=== PATIENT | male | born 1965 | race Caucasian/White ===

== ENCOUNTER 2018-09-01 13:54 | Emergency (ER) | payer BC ==
[2018-09-01 14:01] VITALS: TEMP 98.1
[2018-09-01] MEDS ORDERED: SODIUM CHLORIDE 0.9% 500 ML 500 ML IV STA (14:33)
--- NOTE | 2018-09-01 14:45 | ED ---
General Adult HPI - General Chief complaint: Chest Pain Stated complaint: Chest pain Time Seen by Provider: 09/01/18 14:00 Source: patient, RN notes reviewed Mode of arrival: ambulatory Limitations: no limitations - History of Present Illness Initial comments: This is a 52-year-old male complaining of palpitations. Patient states it's been ongoing for the last few days. Patient states nothing seems to bring it on or slowed down. Patient states it only lasts a few minutes. Patient states there is no chest pain associated with it however he does feel a bit short of breath when it occurs. Patient denies any increased caffeine intake. Patient denies any drug use. Patient denies any recent fever or chills. Patient denies any headache patient denies numbness weakness per patient denies lightheadedness dizziness or near-syncopal episode. Patient denies any recent trip or travel. Patient denies any calf pain or leg swelling. - Related Data Home Medications Medication Instructions Recorded Confirmed Cetirizine HCl [Zyrtec] 10 mg PO DAILY 10/05/16 10/05/16 Fluticasone Propionate [Flonase] 1 spray EA NOSTRIL DAILY PRN 10/05/16 10/05/16 Magnesium Gluconate [Magonate] 500 mg PO DAILY 10/05/16 10/05/16 Multivitamins, Thera [Multivitamin] 1 tab PO DAILY 10/05/16 10/05/16 Previous Rx's Medication Instructions Recorded Ibuprofen [Motrin] 800 mg PO Q6HR PRN #30 tab 10/05/16 Allergies Allergy/AdvReac Type Severity Reaction Status Date / Time promethazine HCl Allergy MAKES Verified 09/01/18 14:01 [From Phenergan] PATIENT "JITTERY" Review of Systems ROS Statement: Those systems with pertinent positive or pertinent negative responses have been documented in the HPI. ROS Other: All systems not noted in ROS Statement are negative. Past Medical History Past Medical History: No Reported History History of Any Multi-Drug Resistant Organisms: None Reported Past Surgical History: No Surgical Hx Reported Past Psychological History: No Psychological Hx Reported Smoking Status: Never smoker Past Alcohol Use History: None Reported Past Drug Use History: None Reported General Exam - General Exam Comments Initial Comments: GENERAL: Patient is well-developed and well-nourished. Patient is nontoxic and well- hydrated and is in no acute distress. ENT: Neck is soft and supple. No significant lymphadenopathy is noted. Oropharynx is clear. Moist mucous membranes. Neck has full range of motion without eliciting any pain. EYES: The sclera were anicteric and conjunctiva were pink and moist. Extraocular movements were intact and pupils were equal round and reactive to light. Eyelids were unremarkable. PULMONARY: Unlabored respirations. Good breath sounds bilaterally. No audible rales rhonchi or wheezing was noted. CARDIOVASCULAR: There is a regular rate and rhythm without any murmurs gallops or rubs. Occasional extrasystole ABDOMEN: Soft and nontender with normal bowel sounds. No palpable organomegaly was noted. There is no palpable pulsatile mass. SKIN: Skin is clear with no lesions or rashes and otherwise unremarkable. NEUROLOGIC: Patient is alert and oriented x3. Cranial nerves II through XII are grossly intact. Motor and sensory are also intact. Normal speech, volume and content. Symmetrical smile. MUSCULOSKELETAL: Normal extremities with adequate strength and full range of motion. No lower extremity swelling or edema. No calf tenderness. LYMPHATICS: No significant lymphadenopathy is noted PSYCHIATRIC: Normal psychiatric evaluation. Limitations: no limitations Course Vital Signs 09/01/18 13:58 Temperature 98.1 F Pulse Rate 63 Respiratory 18 Rate Blood Pressure 129/83 O2 Sat by Pulse 99 Oximetry Medical Decision Making - Medical Decision Making EKG shows normal sinus rhythm at 61 bpm UT interval is 202 QRS is 102 QT interval 36 QTC is 388. Patient's EKG shows no ST segment elevation or depression or T wave abnormalities are noted. Though the nurse's notes stated chest pain when I spoke with the patient I asked him specifically the chest pain he denied that he stated he only had fluttering in his chest. Chest x-ray showed no acute abnormality. Patient did not have any more expensive palpitations while in the emergency department and I again reiterated to him that if he would have any chest pain he should return and he agreed. He states he has yet to have any chest pain. - Lab Data Result diagrams: 09/01/18 14:15 09/01/18 14:15 Lab Results 09/01/18 09/01/18 09/01/18 Range/Units 14:15 14:15 14:15 WBC 4.3 (3.8-10.6) k/uL RBC 4.95 (4.30-5.90) m/uL Hgb 14.9 (13.0-17.5) gm/dL Hct 45.2 (39.0-53.0) % MCV 91.3 (80.0-100.0) fL MCH 30.2 (25.0-35.0) pg MCHC 33.1 (31.0-37.0) g/dL RDW 13.0 (11.5-15.5) % Plt Count 229 (150-450) k/uL Neutrophils % 64 % Lymphocytes % 18 % Monocytes % 8 % Eosinophils % 7 % Basophils % 1 % Neutrophils # 2.7 (1.3-7.7) k/uL Lymphocytes # 0.8 L (1.0-4.8) k/uL Monocytes # 0.3 (0-1.0) k/uL Eosinophils # 0.3 (0-0.7) k/uL Basophils # 0.0 (0-0.2) k/uL PT (9.0-12.0) sec INR (<1.2) APTT (22.0-30.0) sec D-Dimer (<0.60) mg/L FEU Sodium 139 (137-145) mmol/L Potassium 4.6 (3.5-5.1) mmol/L Chloride 105 (98-107) mmol/L Carbon Dioxide 25 (22-30) mmol/L Anion Gap 9 mmol/L BUN 30 H (9-20) mg/dL Creatinine 1.03 (0.66-1.25) mg/dL Est GFR (CKD-EPI)AfAm >90 (>60 ml/min/1.73 sqM) Est GFR (CKD-EPI)NonAf 83 (>60 ml/min/1.73 sqM) Glucose 96 (74-99) mg/dL Calcium 9.5 (8.4-10.2) mg/dL Magnesium 1.9 (1.6-2.3) mg/dL Total Bilirubin 0.5 (0.2-1.3) mg/dL AST 40 (17-59) U/L ALT 46 (21-72) U/L Alkaline Phosphatase 52 (38-126) U/L Total Creatine Kinase 107 (55-170) U/L CK-MB (CK-2) 3.0 H (0.0-2.4) ng/mL CK-MB (CK-2) Rel Index 2.8 Troponin I <0.012 (0.000-0.034) ng/mL Total Protein 7.0 (6.3-8.2) g/dL Albumin 4.2 (3.5-5.0) g/dL TSH 7.200 H (0.465-4.680) mIU/L Free T4 0.67 L (0.78-2.19) ng/dL Urine Opiates Screen (NotDetected) Ur Oxycodone Screen (NotDetected) Urine Methadone Screen (NotDetected) Ur Propoxyphene Screen (NotDetected) Ur Barbiturates Screen (NotDetected) U Tricyclic Antidepress (NotDetected) Ur Phencyclidine Scrn (NotDetected) Ur Amphetamines Screen (NotDetected) U Methamphetamines Scrn (NotDetected) U Benzodiazepines Scrn (NotDetected) Urine Cocaine Screen (NotDetected) U Marijuana (THC) Screen (NotDetected) 09/01/18 09/01/18 Range/Units 14:15 15:15 WBC (3.8-10.6) k/uL RBC (4.30-5.90) m/uL Hgb (13.0-17.5) gm/dL Hct (39.0-53.0) % MCV (80.0-100.0) fL MCH (25.0-35.0) pg MCHC (31.0-37.0) g/dL RDW (11.5-15.5) % Plt Count (150-450) k/uL Neutrophils % % Lymphocytes % % Monocytes % % Eosinophils % % Basophils % % Neutrophils # (1.3-7.7) k/uL Lymphocytes # (1.0-4.8) k/uL Monocytes # (0-1.0) k/uL Eosinophils # (0-0.7) k/uL Basophils # (0-0.2) k/uL PT 10.5 (9.0-12.0) sec INR 1.1 (<1.2) APTT 27.6 (22.0-30.0) sec D-Dimer <0.17 (<0.60) mg/L FEU Sodium (137-145) mmol/L Potassium (3.5-5.1) mmol/L Chloride (98-107) mmol/L Carbon Dioxide (22-30) mmol/L Anion Gap mmol/L BUN (9-20) mg/dL Creatinine (0.66-1.25) mg/dL Est GFR (CKD-EPI)AfAm (>60 ml/min/1.73 sqM) Est GFR (CKD-EPI)NonAf (>60 ml/min/1.73 sqM) Glucose (74-99) mg/dL Calcium (8.4-10.2) mg/dL Magnesium (1.6-2.3) mg/dL Total Bilirubin (0.2-1.3) mg/dL AST (17-59) U/L ALT (21-72) U/L Alkaline Phosphatase (38-126) U/L Total Creatine Kinase (55-170) U/L CK-MB (CK-2) (0.0-2.4) ng/mL CK-MB (CK-2) Rel Index Troponin I (0.000-0.034) ng/mL Total Protein (6.3-8.2) g/dL Albumin (3.5-5.0) g/dL TSH (0.465-4.680) mIU/L Free T4 (0.78-2.19) ng/dL Urine Opiates Screen Not Detected (NotDetected) Ur Oxycodone Screen Not Detected (NotDetected) Urine Methadone Screen Not Detected (NotDetected) Ur Propoxyphene Screen Not Detected (NotDetected) Ur Barbiturates Screen Not Detected (NotDetected) U Tricyclic Antidepress Not Detected (NotDetected) Ur Phencyclidine Scrn Not Detected (NotDetected) Ur Amphetamines Screen Not Detected (NotDetected) U Methamphetamines Scrn Not Detected (NotDetected) U Benzodiazepines Scrn Not Detected (NotDetected) Urine Cocaine Screen Not Detected (NotDetected) U Marijuana (THC) Screen Not Detected (NotDetected) Disposition Clinical Impression: Palpitations, Hypothyroid Disposition: HOME SELF-CARE Condition: Good Instructions: Heart Palpitations (ED), Hypothyroidism (ED) Is patient prescribed a controlled substance at d/c from ED?: No Referrals: Bucky Guardado DO [Primary Care Provider] - 1-2 days Time of Disposition: 16:01
[2018-09-01 14:55] LABS: Basophils % (A) 1 %; Eosinophils # (A) 0.3 k/uL (0-0.7); Eosinophils % (A) 7 %; HCT 45.2 % (39.0-53.0); HGB 14.9 gm/dL (13.0-17.5); Lymphocytes # (A) 0.8 k/uL (1.0-4.8); Lymphocytes % (A) 18 %; MCH 30.2 pg (25.0-35.0); MCHC 33.1 g/dL (31.0-37.0); MCV 91.3 fL (80.0-100.0); Mean Platelet Volume 7.4; Monocytes # (A) 0.3 k/uL (0-1.0); Monocytes % (A) 8 %; Neutrophils # (A) 2.7 k/uL (1.3-7.7); Neutrophils % (A) 64 %; Platelet Count 229 k/uL (150-450); RBC 4.95 m/uL (4.30-5.90); WBC 4.3 k/uL (3.8-10.6)
[2018-09-01 15:07] LABS: ALT 46 U/L (21-72); AST 40 U/L (17-59); Albumin 4.2 g/dL (3.5-5.0); Alkaline Phosphatase 52 U/L (38-126); Anion Gap 9 mmol/L; Blood Urea Nitrogen 30 mg/dL (9-20); Calcium 9.5 mg/dL (8.4-10.2); Carbon Dioxide 25 mmol/L (22-30); Chloride 105 mmol/L (98-107); Glucose 96 mg/dL (74-99); Magnesium 1.9 mg/dL (1.6-2.3); Potassium 4.6 mmol/L (3.5-5.1); Sodium 139 mmol/L (137-145); Total Bilirubin 0.5 mg/dL (0.2-1.3)
[2018-09-01 15:12] LABS: D-Dimer <0.17 mg/L FEU (<0.60); INR 1.1 (<1.2); Partial Thromboplastin Time 27.6 sec (22.0-30.0); Prothrombin Time 10.5 sec (9.0-12.0)
[2018-09-01 15:23] LABS: T4, Free (Free Thyroxine) 0.67 ng/dL (0.78-2.19)
[2018-09-01 15:24] LABS: Creatine Kinase 107 U/L (55-170)
[2018-09-01 15:37] LABS: Troponin I <0.012 ng/mL (0.000-0.034)
--- NOTE | 2018-09-01 15:37 | XR ---
EXAMINATION TYPE: XR chest 2V DATE OF EXAM: 09/01/2018 COMPARISON: Prior chest x-ray 10/05/2016 HISTORY: Dysrhythmia TECHNIQUE: Frontal and lateral views of the chest are obtained on 3 images. FINDINGS: There is no focal air space opacity, pleural effusion, or pneumothorax seen. The cardiac silhouette size is within normal limits. The osseous structures are intact. There are overlying car diac leads. IMPRESSION: No acute cardiopulmonary process.
[2018-09-01 15:44] LABS: Amphetamine Screen,Urine Not Detected (NotDetected); Barbiturate Screen,Urine Not Detected (NotDetected); Benzodiazepines Screen,Urine Not Detected (NotDetected); Cocaine Screen,Urine Not Detected (NotDetected); Methadone Screen, Urine Not Detected (NotDetected); Opiate Screen,Urine Not Detected (NotDetected); Oxycodone Screen, Urine Not Detected (NotDetected); Phencyclidine Screen,Urine Not Detected (NotDetected); Tricyclic Antidepressant,Urine Not Detected (NotDetected); Urn Cannabinoid Scrn Not Detected (NotDetected)
[2018-09-01 16:14] VITALS: BP 124/91; PULSE 67; RESP 16
== END 2018-09-01 16:15 | disposition home or self-care (01) ==
LOC: EC 13:54
DX: E03.9 Hypothyroidism, unspecified (principal); R00.2 Palpitations; R06.02 Shortness of breath; Z88.8 Allergy status to other drugs, medicaments and biological substances; Z79.899 Other long term (current) drug therapy
CPT/HCPCS: 36415; 71046; 80053; 80306; 82550; 82553; 83735; 84439; 84443; 84484; 85025; 85379; 85610; 85730; 93005; 99285

== ENCOUNTER → 2018-09-10 | Outpatient (CLI) | payer BC ==
--- NOTE | 2018-09-10 11:57 | US ---
EXAMINATION TYPE: US thyroid st tissue head/neck DATE OF EXAM: 09/10/2018 COMPARISON: NONE CLINICAL HISTORY: Abnormal thyroid labs. abnormal labs, no previous US GLAND SIZE: Right Lobe: 3.1 x 2.0 x 1.3 cm Overall Parenchyma: heterogenous Left Lobe: 4.5 x 2.3 x 2.2 cm Overall Parenchyma: heterogeneous Isthmus Thickness: 0.5 cm NODULES RIGHT: # of nodules measured on right: 0 LEFT: # of nodules measured on left: 1 1. 0.8 X 0.7 x 0.6 cm hypoechoic solid nodule at the mid pole with well-defined margins. This nodu le is wider than tall and shows intranodular vascularity. Prior size: No previous ISTHMUS: # of nodules measured in the isthmus: 0 Bilateral neck scanned, no evidence of lymphadenopathy. IMPRESSION: The gland is diffusely heterogeneous, correlate for thyroiditis.
== END | disposition home or self-care (01) ==
LOC: RADUSWWP 11:01
PROVIDERS: ATTEND Family Medicine
DX: R94.6 Abnormal results of thyroid function studies (principal)
CPT/HCPCS: 76536

== ENCOUNTER → 2018-09-13 | Outpatient (CLI) | payer BC ==
--- NOTE | 2018-09-14 10:02 | ECHOF ---
Referral Reason:R07.89 Chest Pain, I49.9 Arrhythmia MEASUREMENTS -------- HEIGHT: 193.0 cm WEIGHT: 106.6 kg BP: 120/78 RVIDd: 3.7 cm (< 3.3) IVSd: 1.4 cm (0.6 - 1.1) LVIDd: 4.5 cm (3.9 - 5.3) LVPWd: 1.4 cm (0.6 - 1.1) IVSs: 1.6 cm LVIDs: 4.0 cm LVPWs: 1.5 cm LA Diam: 3.5 cm (2.7 - 3.8) LAESV Index (A-L): 27.42 ml/m Ao Diam: 3.5 cm (2.0 - 3.7) AV Cusp: 2.7 cm (1.5 - 2.6) MV EXCURSION: 21.518 mm (> 18.000) MV EF SLOPE: 132 mm/s (70 - 150) EPSS: 0.4 cm MV E Kannan: 0.63 m/s MV DecT: 218 ms MV A Kannan: 0.66 m/s MV E/A Ratio: 0.95 RAP: 5.00 mmHg RVSP: 22.12 mmHg FINDINGS -------- Sinus rhythm. This was a technically good study. The left ventricular size is normal. There is moderate concentric left ventricular hypertrophy. O verall left ventricular systolic function is normal with, an EF between 60 - 65 %. The right ventricle is mildly enlarged. Normal LA size by volume 22+/-6 ml/m2. The right atrium is normal in size. The aortic valve is trileaflet and appears structurally normal. The mitral valve is normal. Mild tricuspid regurgitation present. Right ventricular systolic pressure is normal at < 35 mmHg. Trace/mild (physiologic) pulmonic regurgitation. The aortic root size is normal. Normal inferior vena cava with normal inspiratory collapse consistent with estimated right atrial pre ssure of 5 mmHg. There is no pericardial effusion. CONCLUSIONS -------- 1. Sinus rhythm. 2. This was a technically good study. 3. The left ventricular size is normal. 4. There is moderate concentric left ventricular hypertrophy. 5. Overall left ventricular systolic function is normal with, an EF between 60 - 65 %. 6. The right ventricle is mildly enlarged. 7. Normal LA size by volume 22+/-6 ml/m2. 8. The right atrium is normal in size. 9. The aortic valve is trileaflet and appears structurally normal. 10. The mitral valve is normal. 11. Mild tricuspid regurgitation present. 12. Right ventricular systolic pressure is normal at < 35 mmHg. 13. Trace/mild (physiologic) pulmonic regurgitation. 14. The aortic root size is normal. 15. Normal inferior vena cava with normal inspiratory collapse consistent with estimated right atrial pressure of 5 mmHg. 16. There is no pericardial effusion. TRAFFIC TECHNICIAN: Hetal Ashby RDCS
== END ==
LOC: RADECHMAIN 13:00
PROVIDERS: ATTEND Family Medicine
DX: I37.1 Nonrheumatic pulmonary valve insufficiency (principal); I07.1 Rheumatic tricuspid insufficiency
CPT/HCPCS: 93306

== ENCOUNTER 2021-08-08 19:05 | Observation (INO) | payer BC ==
--- NOTE | 2021-08-08 19:22 | ED ---
General Adult HPI - General Chief complaint: Chest Pain Stated complaint: chest tightness Time Seen by Provider: 08/08/21 19:09 Source: patient, family Limitations: no limitations - History of Present Illness Initial comments: Patient presents to the ED with his for evaluation. Patient states that for the past 6 days, he has experienced intermittent chest "pressure" and d yspnea. Patient states that he initially noticed these symptoms after climbing a ladder earlier in the week. Patient states that his dyspnea is worse with exertion, but he states that his chest pressure is present even at rest at times. Patient states that he currently has very mild chest pressure that he rates 3/10 in severity. Patient states that he took 4 baby aspirin prior to coming to the ED this evening. Patient denies radiation of his pain, trauma or injury, fever or chills, headache, focal numbness/weakness/neuro deficit, neck/arm/jaw/back pain, pleuritic pain, cough or cold symptoms, palpitations, dizziness, nausea/vomiting/diaphoresis, abdominal pain, urinary symptoms, leg or calf swelling or pain, or any other symptoms or complaints. Patient states that he does have a strong family history of coronary artery disease. - Related Data Home Medications Medication Instructions Recorded Confirmed Cetirizine HCl [Zyrtec] 10 mg PO DAILY 10/05/16 10/05/16 Fluticasone Propionate [Flonase] 1 spray EA NOSTRIL DAILY PRN 10/05/16 10/05/16 Magnesium Gluconate [Magonate] 500 mg PO DAILY 10/05/16 10/05/16 Multivitamins, Thera [Multivitamin] 1 tab PO DAILY 10/05/16 10/05/16 Previous Rx's Medication Instructions Recorded Ibuprofen [Motrin] 800 mg PO Q6HR PRN #30 tab 10/05/16 Allergies Allergy/AdvReac Type Severity Reaction Status Date / Time promethazine HCl Allergy MAKES Verified 08/08/21 19:23 [From Phenergan] PATIENT "JITTERY" Review of Systems ROS Statement: Those systems with pertinent positive or pertinent negative responses have been documented in the HPI. ROS Other: All systems not noted in ROS Statement are negative. Past Medical History Past Medical History: No Reported History Additional Past Medical History / Comment(s): Hypothyroidism History of Any Multi-Drug Resistant Organisms: None Reported Past Surgical History: No Surgical Hx Reported Past Psychological History: No Psychological Hx Reported Past Alcohol Use History: None Reported Past Drug Use History: None Reported - Past Family History Father Family Medical History: Coronary Artery Disease (CAD) General Exam Limitations: no limitations General appearance: alert, in no apparent distress Head exam: Present: atraumatic, normocephalic Eye exam: Present: normal appearance, EOMI ENT exam: Present: mucous membranes moist Neck exam: Present: other (Trachea is in midline) Respiratory exam: Present: normal lung sounds bilaterally. Absent: respiratory distress, wheezes, rales, rhonchi, stridor, chest wall tenderness Cardiovascular Exam: Present: regular rate, normal rhythm, normal heart sounds, other (Normal radial pulses bilaterally) GI/Abdominal exam: Present: soft. Absent: distended, tenderness, guarding Extremities exam: Present: other (Negative Homans sign bilaterally). Absent: t enderness, pedal edema, calf tenderness Neurological exam: Present: alert, oriented X3. Absent: motor sensory deficit Psychiatric exam: Present: normal affect, normal mood Skin exam: Present: warm, dry, intact, normal color Course Vital Signs 08/08/21 08/08/21 08/08/21 19:18 19:19 19:30 Temperature 97.9 F Pulse Rate 71 74 Respiratory 18 18 Rate Blood Pressure 133/97 133/97 O2 Sat by Pulse 96 98 97 Oximetry 08/08/21 20:00 Temperature Pulse Rate 57 L Respiratory 18 Rate Blood Pressure 132/95 O2 Sat by Pulse 95 Oximetry - Reevaluation(s) Reevaluation #1: 08/08/21 21:02 Patient denies development of any new symptoms while in the ED. Patient remains alert and breathing comfortably with a normal room air oxygen saturation. Patient and are aware the patient's test results, and they both agree with hospital admission at this time. 08/08/21 21:03 Case, H&P, test results and ED/home management were discussed with Dr. Steele. He accepts hospital admission. He agrees with cardiology consultation. He has no further recommendations at this time. EKG Findings - EKG Comments: EKG Findings:: Sinus rhythm with borderline first-degree AV block, occasional PVCs, ventricular rate of 75 bpm, WI interval of 206 ms, normal QRS duration, normal QT interval, normal axis, no ST or T-wave abnormality Medical Decision Making - Medical Decision Making Patient's EKG shows occasional PVCs, which the patient states he has a history of. Patient's chest x-ray is unremarkable. Patient's troponin and d-dimer are both negative. Patient's labs are fairly unremarkable. Given the patient's strong family history of coronary artery disease, and given his story, will admit the patient to the hospital for serial troponins, cardiac monitoring and cardiology consultation. Dr. Steele has accepted hospital admission. - Lab Data Result diagrams: 08/08/21 19:52 08/08/21 19:52 Lab Results 08/08/21 08/08/21 08/08/21 Range/Units 19:52 19:52 19:52 WBC 6.4 (3.8-10.6) k/uL RBC 4.60 (4.30-5.90) m/uL Hgb 14.3 (13.0-17.5) gm/dL Hct 42.2 (39.0-53.0) % MCV 91.6 (80.0-100.0) fL MCH 31.2 (25.0-35.0) pg MCHC 34.0 (31.0-37.0) g/dL RDW 12.1 (11.5-15.5) % Plt Count 178 (150-450) k/uL MPV 8.7 Neutrophils % 79 % Lymphocytes % 13 % Monocytes % 6 % Eosinophils % 0 % Basophils % 1 % Neutrophils # 5.1 (1.3-7.7) k/uL Lymphocytes # 0.8 L (1.0-4.8) k/uL Monocytes # 0.4 (0-1.0) k/uL Eosinophils # 0.0 (0-0.7) k/uL Basophils # 0.0 (0-0.2) k/uL PT 10.4 (9.0-12.0) sec INR 1.0 (<1.2) APTT 24.8 (22.0-30.0) sec D-Dimer <0.17 (<0.60) mg/L FEU Sodium 140 (137-145) mmol/L Potassium 4.2 (3.5-5.1) mmol/L Chloride 108 H (98-107) mmol/L Carbon Dioxide 22 (22-30) mmol/L Anion Gap 10 mmol/L BUN 23 H (9-20) mg/dL Creatinine 1.11 (0.66-1.25) mg/dL Est GFR (CKD-EPI)AfAm 86 (>60 ml/min/1.73 sqM) Est GFR (CKD-EPI)NonAf 74 (>60 ml/min/1.73 sqM) Glucose 116 H (74-99) mg/dL Calcium 10.0 (8.4-10.2) mg/dL Magnesium 2.0 (1.6-2.3) mg/dL Total Bilirubin 0.4 (0.2-1.3) mg/dL AST 32 (17-59) U/L ALT 35 (4-49) U/L Alkaline Phosphatase 50 (38-126) U/L Troponin I (0.000-0.034) ng/mL Total Protein 7.4 (6.3-8.2) g/dL Albumin 4.6 (3.5-5.0) g/dL 08/08/21 Range/Units 19:52 WBC (3.8-10.6) k/uL RBC (4.30-5.90) m/uL Hgb (13.0-17.5) gm/dL Hct (39.0-53.0) % MCV (80.0-100.0) fL MCH (25.0-35.0) pg MCHC (31.0-37.0) g/dL RDW (11.5-15.5) % Plt Count (150-450) k/uL MPV Neutrophils % % Lymphocytes % % Monocytes % % Eosinophils % % Basophils % % Neutrophils # (1.3-7.7) k/uL Lymphocytes # (1.0-4.8) k/uL Monocytes # (0-1.0) k/uL Eosinophils # (0-0.7) k/uL Basophils # (0-0.2) k/uL PT (9.0-12.0) sec INR (<1.2) APTT (22.0-30.0) sec D-Dimer (<0.60) mg/L FEU Sodium (137-145) mmol/L Potassium (3.5-5.1) mmol/L Chloride (98-107) mmol/L Carbon Dioxide (22-30) mmol/L Anion Gap mmol/L BUN (9-20) mg/dL Creatinine (0.66-1.25) mg/dL Est GFR (CKD-EPI)AfAm (>60 ml/min/1.73 sqM) Est GFR (CKD-EPI)NonAf (>60 ml/min/1.73 sqM) Glucose (74-99) mg/dL Calcium (8.4-10.2) mg/dL Magnesium (1.6-2.3) mg/dL Total Bilirubin (0.2-1.3) mg/dL AST (17-59) U/L ALT (4-49) U/L Alkaline Phosphatase (38-126) U/L Troponin I <0.012 (0.000-0.034) ng/mL Total Protein (6.3-8.2) g/dL Albumin (3.5-5.0) g/dL - Radiology Data Radiology results: report reviewed (Chest x-ray: Normal chest. No change.) Disposition Clinical Impression: Chest pain Disposition: ADMITTED IP TO THIS [facility] Condition: Stable Is patient prescribed a controlled substance at d/c from ED?: No Referrals: Bucky Guardado DO [Primary Care Provider] - 1-2 days
[2021-08-08 19:24] VITALS: TEMP 97.9
[2021-08-08] MEDS ORDERED: NITROGLYCERIN OINT 1 INCH/GM PACKET TOPICAL STA (19:32)
--- NOTE | 2021-08-08 19:51 | XR ---
EXAMINATION TYPE: XR chest 2V DATE OF EXAM: 08/08/2021 COMPARISON: 09/01/2018 HISTORY: Dysrhythmia TECHNIQUE: FINDINGS: Heart and mediastinum are normal. Lungs are clear. Diaphragm is normal. Bony thorax appears normal. IMPRESSION: Normal chest. No change.
[2021-08-08 20:04] LABS: Basophils % (A) 1 %; Eosinophils % (A) 0 %; HCT 42.2 % (39.0-53.0); HGB 14.3 gm/dL (13.0-17.5); Lymphocytes # (A) 0.8 k/uL (1.0-4.8); Lymphocytes % (A) 13 %; MCH 31.2 pg (25.0-35.0); MCV 91.6 fL (80.0-100.0); Mean Platelet Volume 8.7; Monocytes # (A) 0.4 k/uL (0-1.0); Monocytes % (A) 6 %; Neutrophils # (A) 5.1 k/uL (1.3-7.7); Neutrophils % (A) 79 %; Platelet Count 178 k/uL (150-450); RDW 12.1 % (11.5-15.5); WBC 6.4 k/uL (3.8-10.6)
[2021-08-08 20:23] LABS: Albumin 4.6 g/dL (3.5-5.0); Potassium 4.2 mmol/L (3.5-5.1); Total Bilirubin 0.4 mg/dL (0.2-1.3); Total Protein 7.4 g/dL (6.3-8.2)
[2021-08-08 20:28] LABS: Partial Thromboplastin Time 24.8 sec (22.0-30.0); Prothrombin Time 10.4 sec (9.0-12.0)
[2021-08-09] MEDS: ACETAMINOPHEN TAB 325 MG TAB PO PRN ×2 (01:19→08:16)
[2021-08-09 04:02] LABS: Basophils % (A) 0 %; Eosinophils # (A) 0.1 k/uL (0-0.7); Eosinophils % (A) 1 %; HCT 39.4 % (39.0-53.0); HGB 13.3 gm/dL (13.0-17.5); Lymphocytes # (A) 1.3 k/uL (1.0-4.8); Lymphocytes % (A) 23 %; MCH 31.5 pg (25.0-35.0); MCHC 33.8 g/dL (31.0-37.0); MCV 93.1 fL (80.0-100.0); Mean Platelet Volume 8.1; Monocytes # (A) 0.5 k/uL (0-1.0); Monocytes % (A) 9 %; Neutrophils # (A) 3.7 k/uL (1.3-7.7); Neutrophils % (A) 65 %; Platelet Count 143 k/uL (150-450); RBC 4.23 m/uL (4.30-5.90); RDW 12.2 % (11.5-15.5); WBC 5.8 k/uL (3.8-10.6)
[2021-08-09 04:26] LABS: ALT 31 U/L (4-49); AST 27 U/L (17-59); African American GFR (CKD) >90 (>60 ml/min/1.73 sqM); Albumin 3.9 g/dL (3.5-5.0); Alkaline Phosphatase 44 U/L (38-126); Anion Gap 6 mmol/L; Blood Urea Nitrogen 24 mg/dL (9-20); Calcium 9.4 mg/dL (8.4-10.2); Carbon Dioxide 26 mmol/L (22-30); Chloride 106 mmol/L (98-107); Glucose 114 mg/dL (74-99); Non-African American GFR(CKD) 78 (>60 ml/min/1.73 sqM); Potassium 4.1 mmol/L (3.5-5.1); Sodium 138 mmol/L (137-145); Total Bilirubin 0.4 mg/dL (0.2-1.3); Total Protein 6.4 g/dL (6.3-8.2)
--- NOTE | 2021-08-09 09:40 | P.CRDCN ---
History of Present Illness History of present illness: HISTORY OF PRESENTING ILLNESS This is a pleasant 55-year-old male past medical history significant for hypothyroidism. 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 We have been asked to see in consultation for chest pain. Patient is seen and examined in the emergency department. He states he has been having chest pain since Monday. Pain has been having central and left sided chest pain on and off for a week. He describes his pain as a chest pressure. He does have radiating to his upper joelle k. He states he was working out in his yard doing housework, climbing up ladders and after this pain with it started having the chest pressure. He was not having any chest pressure during his activity. He had associated shortness of breath, mild diaphoresis. He also endorses occasional palpitations. He denies any nausea or abdominal pain, lightheadedness, dizziness, syncope. He denies symptoms of orthopnea or PND. He denies history of PR, stroke, diabetes, hypertension, dyslipidemia. He has no history of coronary artery disease. He is a nonsmoker. Family history includes father had hypertension. He denies any recent stress testing or cardiac workup. DIAGNOSTICS EKG reveals sinus rhythm, PVCs, heart rate 75, T wave inversion in lead III, T wave flattening in lead aVF. EKG in 2018 appear similar. Echocardiogram in 2018 revealed an EF of 6065 percent, moderate concentric left ventricular hypertrophy, mild tricuspid regurgitation. Chest xray no acute cardiopulmonary process. Laboratory reviewed, sodium 138, potassium 4.1, BUN 24, serum creatinine 1.07, troponin negative 3, BNP 119, d-dimer negative, COVID-19 PCR negative He states he currently takes acid reflux medication, Synthroid, vitamins. REVIEW OF SYSTEMS At the time of my exam: CONSTITUTIONAL: Denies fever or chills. CARDIOVASCULAR: + chest pain, +shortness of breath, +palpitations Denies orthopnea, PND RESPIRATORY: Denies cough. GASTROINTESTINAL: Denies abdominal pain, diarrhea, constipation, nausea or v omiting. MUSCULOSKELETAL: Denies myalgias. NEUROLOGIC: Denies numbness, tingling, headacbe or weakness. ENDOCRINE: Denies fatigue, weight change, polydipsia or polyurina. GENITOURINARY: Denies burning, hematuria or urgency with micturation. HEMATOLOGIC: Denies history of anemia or bleeding. PHYSICAL EXAMINATION Blood pressure 144/92, heart rate 80, afebrile, maintaining oxygen saturations on room air CONSTITUTIONAL: No apparent distress. HEENT: Head is normocephalic. Pupils are equal, round. Sclerae anicteric. Mucous membranes of the mouth are moist. No JVD. No carotid bruit. CHEST EXAMINATION: Lungs are clear to auscultation. No chest wall tenderness is noted on palpation or with deep breathing. HEART EXAMINATION: Regular rate and rhythm. S1, S2 heard. No murmurs, gallops or rub. ABDOMEN: Soft, nontender. Positive bowel sounds. EXTREMITIES: 2+ peripheral pulses, no lower extremity edema and no calf tenderness. NEUROLOGIC EXAMINATION: Patient is awake, alert and oriented x3. ASSESSMENT Chest pain, atypical, acute coronary syndrome has been ruled out. History of hypothyroidism PLAN: An acute coronary event has been ruled out with no EKG evidence of ischemia and negative cardiac enzymes. Perform stress echo test to assess for stress induced cardiac ischemia. If abnormal will consider coronary angiography. From a cardiology perspective, if Stress Echo test is normal, no further cardiac workup indicated. Patient stable to be discharged home. Thank you kindly for this consultation. Nurse Practitioner note has been reviewed, I agree with a documented findings and plan of care. Patient was seen and examined. Past Medical History Past Medical History: No Reported History Additional Past Medical History / Comment(s): Hypothyroidism History of Any Multi-Drug Resistant Organisms: None Reported Past Surgical History: No Surgical Hx Reported Additional Past Surgical History / Comment(s): Eye surgery. Past Psychological History: No Psychological Hx Reported Past Alcohol Use History: None Reported Past Drug Use History: None Reported - Past Family History Father Family Medical History: Coronary Artery Disease (CAD) Medications and Allergies Home Medications Medication Instructions Recorded Confirmed Type Fluticasone Propionate [Flonase] 1 spray EA NOSTRIL DAILY PRN 10/05/16 08/08/21 History Multivitamins, Thera [Multivitamin] 1 tab PO DAILY 10/05/16 08/08/21 History Aspirin EC [Ecotrin Low Dose] 81 mg PO DAILY 08/08/21 08/08/21 History Calcium/Magnesium/Zinc 1 tab PO DAILY 08/08/21 08/08/21 History [Wchmpqy-Ecezksypk-Ubyn Tablet] Cholecalciferol [Vitamin D3 (25 25 mcg PO DAILY 08/08/21 08/08/21 History Mcg = 1000 Iu)] Lansoprazole [Prevacid] 15 mg PO HS 08/08/21 08/08/21 History Levothyroxine Sodium [Synthroid] 75 mcg PO DAILY 08/08/21 08/08/21 History [place]-3 Fatty Acids/Fish Oil [Fish 1 cap PO DAILY 08/08/21 08/08/21 History Oil 1,000 mg Softgel] Vitamin B Complex 1 cap PO DAILY 08/08/21 08/08/21 History Vitamin K/Vitamin D 1 tab PO DAILY 08/08/21 08/08/21 History Zinc 50 mg PO DAILY 08/08/21 08/08/21 History predniSONE See Taper PO DAILY 08/08/21 08/08/21 History Allergies Allergy/AdvReac Type Severity Reaction Status Date / Time promethazine HCl Allergy MAKES Verified 08/08/21 21:07 [From Phenergan] PATIENT "JITTERY" Physical Exam Vitals: Vital Signs Temp Pulse Resp BP Pulse Ox 08/09/21 05:00 76 18 126/90 98 08/09/21 03:00 57 L 18 110/79 98 08/09/21 01:00 62 18 99/72 98 08/08/21 23:20 78 18 118/71 98 08/08/21 21:43 57 L 18 120/88 96 08/08/21 20:00 57 L 18 132/95 95 08/08/21 19:30 74 18 133/97 97 08/08/21 19:19 97.9 F 71 18 133/97 98 08/08/21 19:18 96 Intake and Output 08/08/21 08/09/21 08/09/21 22:59 06:59 14:59 Other: Weight 117.934 kg Results 08/09/21 03:51 08/09/21 03:51 Cardiac Enzymes 08/08/21 08/08/21 08/09/21 Range/Units 19:52 19:52 00:00 AST 32 (17-59) U/L Troponin I <0.012 <0.012 (0.000-0.034) ng/mL 08/09/21 08/09/21 Range/Units 03:51 03:51 AST 27 (17-59) U/L Troponin I <0.012 (0.000-0.034) ng/mL Coagulation 08/08/21 Range/Units 19:52 PT 10.4 (9.0-12.0) sec APTT 24.8 (22.0-30.0) sec CBC 08/08/21 08/09/21 Range/Units 19:52 03:51 WBC 6.4 5.8 (3.8-10.6) k/uL RBC 4.60 4.23 L (4.30-5.90) m/uL Hgb 14.3 13.3 (13.0-17.5) gm/dL Hct 42.2 39.4 (39.0-53.0) % Plt Count 178 143 L (150-450) k/uL Comprehensive Metabolic Panel 08/08/21 08/09/21 Range/Units 19:52 03:51 Sodium 140 138 (137-145) mmol/L Potassium 4.2 4.1 (3.5-5.1) mmol/L Chloride 108 H 106 (98-107) mmol/L Carbon Dioxide 22 26 (22-30) mmol/L BUN 23 H 24 H (9-20) mg/dL Creatinine 1.11 1.07 (0.66-1.25) mg/dL Glucose 116 H 114 H (74-99) mg/dL Calcium 10.0 9.4 (8.4-10.2) mg/dL AST 32 27 (17-59) U/L ALT 35 31 (4-49) U/L Alkaline Phosphatase 50 44 (38-126) U/L Total Protein 7.4 6.4 (6.3-8.2) g/dL Albumin 4.6 3.9 (3.5-5.0) g/dL Current Medications Generic Name Dose Route Start Last Admin Trade Name Freq PRN Reason Stop Dose Admin Acetaminophen 650 mg 08/09/21 01:07 08/09/21 01:19 Acetaminophen Tab 325 Mg Tab PO 650 mg Q6HR PRN Administration Fever and/ or Pain Intake and Output 08/08/21 08/09/21 08/09/21 22:59 06:59 14:59 Other: Weight 117.934 kg 08/09/21 03:51 08/09/21 03:51
[2021-08-09 13:31] VITALS: BP 134/82; PULSE 90; RESP 16
--- NOTE | 2021-08-09 13:55 | P.HPIM ---
History of Present Illness H&P Date: 08/09/21 Chief Complaint: Chest pressure History of presenting complaint: This is a very pleasant 55-year-old patient who follows with Dr. Guardado. Chronic stable medical conditions include hypothyroid, reflux. Patient does have chronically trouble sleeping. 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 And a baseline patient rather anxious by nature his girlfri end states was at the bedside. Patient also does snore significantly. And has periods of apnea. Patient does feel tired quite a bit. Patient now presents with few days' episodes of chest tightness. Present across the chest. No radiation. Does seem to get worse with activity. 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 Slight shortness of breath. Tired. No prior cardiac history. No edema. No fevers. Review of systems: GEN.: Tired EYES: None HEENT: None NECK: None RESPIRATORY: As above CARDIOVASCULAR: As above, no leg swelling GASTROINTESTINAL: None GENITOURINARY: None MUSCULOSKELETAL: None LYMPHATICS: None HEMATOLOGICAL: None PSYCHIATRY: Some anxiety NEUROLOGICAL: Trouble sleeping Social history: Lives with his girlfriend Monica. Does not smoke or drink alcohol. 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 Family history: CAD Physical examination: VITAL SIGNS: 97.9, 71, 18, 133/97, 98% on room air GENERAL:. BMI 31.6, reclining in bed, awake, tired appearing, not in distress. EYES: Pupils equal. Conjunctiva normal. HEENT: External appearance of nose and ears normal, oral cavity grossly normal. NECK: JVD not raised; masses not palpable. HEART: First and second heart sounds are normal; no edema. LUNGS: Respiratory rate normal; clear to auscultation. ABDOMEN: Soft, nontender, liver spleen not palpable, no masses palpable. PSYCH: [Alert and oriented x3; mood and affect anxious l. NEUROLOGICAL: Cranial nerves grossly intact; no facial asymmetry, power and sensation grossly intact. LYMPHATICS: No lymph nodes palpable in the axilla and neck INVESTIGATIONS, reviewed in the clinical context: WBC 5.8 hemoglobin 13.3 platelets 143 potassium 4.1 BUN 24 creatinine 1.07 D-dimer less than 0.17 Troponin I less than 0.0123 Coronavirus [PCR]: Not detected EKG tracing personally reviewed by me-normal sinus rhythm Chest x-ray film personally reviewed by me-no obvious infiltrates Assessment and plan: -Intermittent chest pain, with symptoms worse with activity. Troponin negative. EKG normal. Positive family history. Rule out cardiac cause. Cardiology consulted. Stress disorder. -Hypothyroid Synthroid 75 g a day -GERD Prevacid 50 mg daily at bedtime -Acute bronchitis/rhinitis Patient is on Flonase and a tapering dose of prednisone from outpatient -Chronic insomnia Melatonin 3 mg daily at bedtime -Mild anxiety disorder at baseline Follow-up with PCP -Patient has episodes of apnea with snoring. Will have patient follow-up with Dr. Wolf from his sleep studies outpatient. This was discussed with the patient and the girlfriend. Patient placed on telemetry. Home medications resumed. Cardiogenic consulted. On the stress test. Patient Maryann aspirin. Currently no chest pain. Past Medical History Past Medical History: No Reported History Additional Past Medical History / Comment(s): Hypothyroidism History of Any Multi-Drug Resistant Organisms: None Reported Past Surgical History: No Surgical Hx Reported Additional Past Surgical History / Comment(s): Eye surgery. Past Psychological History: No Psychological Hx Reported Past Alcohol Use History: None Reported Past Drug Use History: None Reported - Past Family History Father Family Medical History: Coronary Artery Disease (CAD) Medications and Allergies Home Medications Medication Instructions Recorded Confirmed Type Fluticasone Propionate [Flonase] 1 spray EA NOSTRIL DAILY PRN 10/05/16 08/08/21 History Multivitamins, Thera [Multivitamin 1 tab PO DAILY 10/05/16 08/08/21 History (formulary)] Aspirin EC [Ecotrin Low Dose] 81 mg PO DAILY 08/08/21 08/08/21 History Calcium/Magnesium/Zinc 1 tab PO DAILY 08/08/21 08/08/21 History [Kmezwcm-Kuytnfgzo-Kwei Tablet] Cholecalciferol [Vitamin D3 (25 25 mcg PO DAILY 08/08/21 08/08/21 History Mcg = 1000 Iu)] Lansoprazole [Prevacid] 15 mg PO HS 08/08/21 08/08/21 History Levothyroxine Sodium [Synthroid] 75 mcg PO DAILY 08/08/21 08/08/21 History [place]-3 Fatty Acids/Fish Oil [Fish 1 cap PO DAILY 08/08/21 08/08/21 History Oil 1,000 mg Softgel] Vitamin B Complex 1 cap PO DAILY 08/08/21 08/08/21 History Vitamin K/Vitamin D 1 tab PO DAILY 08/08/21 08/08/21 History Zinc 50 mg PO DAILY 08/08/21 08/08/21 History predniSONE See Taper PO DAILY 08/08/21 08/08/21 History Melatonin 3 mg PO HS #30 tablet 08/09/21 Rx Allergies Allergy/AdvReac Type Severity Reaction Status Date / Time promethazine HCl Allergy MAKES Verified 08/08/21 21:07 [From Phenergan] PATIENT "JITTERY" Physical Exam Vitals: Vital Signs Temp Pulse Resp BP Pulse Ox 08/09/21 09:37 88 20 144/92 97 08/09/21 07:53 69 20 128/89 96 08/09/21 05:00 76 18 126/90 98 08/09/21 03:00 57 L 18 110/79 98 08/09/21 01:00 62 18 99/72 98 08/08/21 23:20 78 18 118/71 98 08/08/21 21:43 57 L 18 120/88 96 08/08/21 20:00 57 L 18 132/95 95 08/08/21 19:30 74 18 133/97 97 08/08/21 19:19 97.9 F 71 18 133/97 98 08/08/21 19:18 96 Intake and Output 08/08/21 08/09/21 08/09/21 22:59 06:59 14:59 Other: Weight 117.934 kg Results CBC & Chem 7: 08/09/21 03:51 08/09/21 03:51 Labs: Abnormal Lab Results - Last 24 Hours (Table) 08/08/21 08/08/21 08/09/21 Range/Units 19:52 19:52 03:51 RBC 4.23 L (4.30-5.90) m/uL Plt Count 143 L (150-450) k/uL Lymphocytes # 0.8 L (1.0-4.8) k/uL Chloride 108 H (98-107) mmol/L BUN 23 H (9-20) mg/dL Glucose 116 H (74-99) mg/dL 08/09/21 Range/Units 03:51 RBC (4.30-5.90) m/uL Plt Count (150-450) k/uL Lymphocytes # (1.0-4.8) k/uL Chloride (98-107) mmol/L BUN 24 H (9-20) mg/dL Glucose 114 H (74-99) mg/dL
--- NOTE | 2021-08-09 14:28 | ECHOS ---
STRESS ECHOCARDIOGRAM INDICATIONS: Chest pain BASELINE HEART RATE: 67 BASELINE BLOOD PRESSURE: 135/93 MAXIMUM HEART RATE: 162 MAXIMUM BLOOD PRESSURE: 197/87 85% MPHR: 139 100% MPHR: 164 METS: 10.3 MAXIMUM STAGE REACHED: IV TOTAL EXERCISE TIME: 12 min CLINICAL INFORMATION: Baseline EKG revealed normal sinus rhythm without significant ST-T changes. Patient walked on a standard Davin protocol for 12 minutes, achieved a maximal heart rate of 162 beats per minute, which is well above 85% of predicted maximal. Patient did not have any angina or arrhythmia. EKG did not reveal any ST-segment changes to indicate ischemia. By EKG criteria, this is a negative stress test with excellent exercise capacity. Baseline echo images revealed normal wall motion and wall thickening of all segments. At peak exercise there was good augmentation of left ventricular wall motion and wall thickening of all segments, suggesting that there is no evidence of any stress-induced ischemia on this study. FINAL IMPRESSION: 1. Excellent exercise capacity with a negative stress test by EKG criteria. 2. Negative stress echocardiogram without evidence of ischemia. MMODL / IJN: [id number] /
--- NOTE | 2021-08-09 17:29 | P.DS ---
Providers Date of admission: 08/08/21 21:04 Expected date of discharge: 08/09/21 Attending physician: Donny Anaya Consults: 08/08/21 21:05 Consult Physician Urgent Consulting Provider: Micheal Rodrigez Consult Reason/Comments: chest pain Do you want consulting provider notified?: Yes Primary care physician: Bucky Guardado [facility] Course: Chief Complaint: Chest pressure History of presenting complaint: This is a very pleasant 55-year-old patient who follows with Dr. Guardado. Chronic stable medical conditions include hypothyroid, reflux. Patient does have chronically trouble sleeping. 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 And a baseline patient rather anxious by nature his girlfriend states was at the bedside. Patient also does snore significantly. And has periods of apnea. Patient does feel tired quite a bit. Patient now presents with few days' episodes of chest tightness. Present across the chest. No radiation. Does seem to get worse with activity. Slight shortness of breath. Tired. No prior cardiac history. No edema. No fevers. Patient's EKG was unremarkable. Negative troponins. Stress echocardiogram was reported to be negative by cardiology. Melatonin is being added for insomnia. Patient may be considered for anxiety medications as outpatient. 2 discussed with his family doctor. Patient was advised at length about lifestyle changes. Also to follow-up with Dr. Wolf from pulmonary for sleep study Consultation: Dr. JEFFREY Shelton from cardiology Social history: Lives with his girlfriend Monica. Does not smoke or drink alcohol. 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 Family history: CAD Physical examination: VITAL SIGNS: 97.9, 71, 18, 133/97, 98% on room air GENERAL:. BMI 31.6, reclining in bed, awake, tired appearing, not in distress. EYES: Pupils equal. Conjunctiva normal. HEENT: External appearance of nose and ears normal, oral cavity grossly normal. NECK: JVD not raised; masses not palpable. HEART: First and second heart sounds are normal; no edema. LUNGS: Respiratory rate normal; clear to auscultation. ABDOMEN: Soft, nontender, liver spleen not palpable, no masses palpable. PSYCH: [Alert and oriented x3; mood and affect anxious l. NEUROLOGICAL: Cranial nerves grossly intact; no facial asymmetry, power and sensation grossly intact. LYMPHATICS: No lymph nodes palpable in the axilla and neck INVESTIGATIONS, reviewed in the clinical context: Stress echocardiogram: Negative for ischemia WBC 5.8 hemoglobin 13.3 platelets 143 potassium 4.1 BUN 24 creatinine 1.07 D-dimer less than 0.17 Troponin I less than 0.0123 Coronavirus [PCR]: Not detected EKG tracing personally reviewed by me-normal sinus rhythm Chest x-ray film personally reviewed by me-no obvious infiltrates Assessment and plan: -Intermittent chest pain, with symptoms worse with activity. Troponin negative. EKG normal. Positive family history.: Possible psychosomatic from underlying anxiety Negative stress echocardiogram. -Hypothyroid Synthroid 75 g a day -GERD Prevacid 50 mg daily at bedtime -Acute bronchitis/rhinitis Patient is on Flonase and a tapering dose of prednisone from outpatient -Chronic insomnia Melatonin 3 mg daily at bedtime -Mild anxiety disorder at baseline Follow-up with PCP -Patient has episodes of apnea with snoring. Will have patient follow-up with Dr. Wolf from his sleep studies outpatient. This was discussed with the patient and the girlfriend. Disposition: Home Patient Condition at Discharge: Stable Plan - Discharge Summary New Discharge Prescriptions: New Melatonin 3 mg PO HS #30 tablet Continue Multivitamins, Thera [Multivitamin (formulary)] 1 tab PO DAILY Fluticasone Propionate [Flonase] 1 spray EA NOSTRIL DAILY PRN PRN Reason: Allergy Symptoms Levothyroxine Sodium [Synthroid] 75 mcg PO DAILY Zinc 50 mg PO DAILY Vitamin K/Vitamin D 1 tab PO DAILY predniSONE See Taper PO DAILY Calcium/Magnesium/Zinc [Wgyckab-Drxjucwfp-Pait Tablet] 1 tab PO DAILY Cholecalciferol [Vitamin D3 (25 Mcg = 1000 Iu)] 25 mcg PO DAILY [place]-3 Fatty Acids/Fish Oil [Fish Oil 1,000 mg Softgel] 1 cap PO DAILY Lansoprazole [Prevacid] 15 mg PO HS Aspirin EC [Ecotrin Low Dose] 81 mg PO DAILY Vitamin B Complex 1 cap PO DAILY Discharge Medication List Fluticasone Propionate [Flonase] 1 spray EA NOSTRIL DAILY PRN 10/05/16 [History] Multivitamins, Thera [Multivitamin (formulary)] 1 tab PO DAILY 10/05/16 [History] Aspirin EC [Ecotrin Low Dose] 81 mg PO DAILY 08/08/21 [History] Calcium/Magnesium/Zinc [Cwqempu-Fzxorgkfp-Ojei Tablet] 1 tab PO DAILY 08/08/21 [History] Cholecalciferol [Vitamin D3 (25 Mcg = 1000 Iu)] 25 mcg PO DAILY 08/08/21 [History] Lansoprazole [Prevacid] 15 mg PO HS 08/08/21 [History] Levothyroxine Sodium [Synthroid] 75 mcg PO DAILY 08/08/21 [History] [place]-3 Fatty Acids/Fish Oil [Fish Oil 1,000 mg Softgel] 1 cap PO DAILY 08/08/21 [History] Vitamin B Complex 1 cap PO DAILY 08/08/21 [History] Vitamin K/Vitamin D 1 tab PO DAILY 08/08/21 [History] Zinc 50 mg PO DAILY 08/08/21 [History] predniSONE See Taper PO DAILY 08/08/21 [History] Melatonin 3 mg PO HS #30 tablet 08/09/21 [Rx] Follow up Appointment(s)/Referral(s): cardiology, [Other] - 4 Weeks Rayray Shelton MD [STAFF PHYSICIAN] - 1 Week Bucky Guardado DO [Primary Care Provider] - 1-2 days Steven Wolf MD [STAFF PHYSICIAN] - 1 Week (slep apnea workup) Patient Instructions/Handouts: Chest Pain (DC) Discharge Disposition: HOME SELF-CARE
== END 2021-08-09 14:06 | disposition home or self-care (01) ==
LOC: EC 19:05 → 1SOBS 21:04 → 6NMEDSUR 08-09 00:11
PROVIDERS: ADMIT Hospitalist; ATTEND Hospitalist
DX: R07.9 Chest pain, unspecified (principal); E03.9 Hypothyroidism, unspecified; K21.9 Gastro-esophageal reflux disease without esophagitis; J20.9 Acute bronchitis, unspecified; J31.0 Chronic rhinitis; Z20.822 Contact with and (suspected) exposure to COVID-19; F51.04 Psychophysiologic insomnia; R06.81 Apnea, not elsewhere classified; R06.83 Snoring; F41.9 Anxiety disorder, unspecified; F43.9 Reaction to severe stress, unspecified; I49.3 Ventricular premature depolarization; Z79.82 Long term (current) use of aspirin; Z79.890 Hormone replacement therapy; Z88.8 Allergy status to other drugs, medicaments and biological substances; Z82.49 Family history of ischemic heart disease and other diseases of the circulatory system
CPT/HCPCS: 99285; 36415; 93005; 93351; 85379; 83880; 80053 ×2; 83735; 84484 ×2; 85025 ×2; 85610; 85730; 87635; 71046; G0378 ×2

== ENCOUNTER 2022-11-21 09:21 | Observation (INO) | payer BC ==
[2022-11-21] MEDS ORDERED: ASPIRIN 81 MG PO STA (09:58)
[2022-11-21 10:28] LABS: Basophils % (A) 1 %; Eosinophils # (A) 0.2 k/uL (0-0.7); Eosinophils % (A) 4 %; HCT 41.6 % (39.0-53.0); HGB 14.6 gm/dL (13.0-17.5); Lymphocytes # (A) 0.9 k/uL (1.0-4.8); Lymphocytes % (A) 19 %; MCH 31.2 pg (25.0-35.0); MCHC 35.1 g/dL (31.0-37.0); MCV 88.8 fL (80.0-100.0); Mean Platelet Volume 8.5; Monocytes # (A) 0.4 k/uL (0-1.0); Monocytes % (A) 9 %; Neutrophils % (A) 65 %; Platelet Count 181 k/uL (150-450); RBC 4.68 m/uL (4.30-5.90); RDW 12.4 % (11.5-15.5); WBC 4.7 k/uL (3.8-10.6)
[2022-11-21 10:34] LABS: Partial Thromboplastin Time 27.5 sec (22.0-30.0); Prothrombin Time 10.8 sec (9.0-12.0)
[2022-11-21 10:43] LABS: ALT 38 U/L (4-49); AST 34 U/L (17-59); African American GFR (CKD) >90 (>60 ml/min/1.73 sqM); Albumin 4.5 g/dL (3.5-5.0); Alkaline Phosphatase 49 U/L (38-126); Amylase 57 U/L (30-110); Anion Gap 8 mmol/L; Blood Urea Nitrogen 22 mg/dL (9-20); Calcium 9.2 mg/dL (8.4-10.2); Carbon Dioxide 22 mmol/L (22-30); Chloride 108 mmol/L (98-107); Glucose 113 mg/dL (74-99); Lipase 133 U/L (23-300); Magnesium 1.8 mg/dL (1.6-2.3); Non-African American GFR(CKD) >90 (>60 ml/min/1.73 sqM); Sodium 138 mmol/L (137-145); Total Bilirubin 0.8 mg/dL (0.2-1.3); Total Protein 7.2 g/dL (6.3-8.2)
[2022-11-21 11:06] LABS: Potassium 4.4 mmol/L (3.5-5.1)
--- NOTE | 2022-11-21 11:44 | CT ---
EXAMINATION TYPE: CT angio thor/abd pel aorta CT DLP: 2480.8 mGycm, Automated exposure control for dose reduction was used. DATE OF EXAM: 11/21/2022 11:08 AM COMPARISON: Chest radiograph 08/08/2021. CLINICAL INDICATION:Male, 56 years old with history of eval for PE and aortic dissection; PHH, chest pain, sob onset 1 day ago TECHNIQUE: Dissection protocol: Multiple axial CT images of the chest, abdomen, and pelvis were obtai nano prior and to the administration of IV contrast. 3-D reformats and maximum intensity projection fo rmat were performed on a separate workstation. Contrast used:100 ml mL of Isovue 370 with IV Contrast, Oral contrast used: without Oral Contrast FINDINGS: ARTERIAL VASCULATURE: The thoracic aorta is normal in course and caliber. There is no evidence of aor tic dissection, aneurysm or acute aortic injury. No intramural hematoma. Great arch vessels patent an d normal in course and caliber. PULMONARY ARTERIAL VASCULATURE: Normal caliber. No evidence of filling defect to suggest pulmonary em bolus. VENOUS SYSTEM: Unremarkable. Lungs/pleura: Minimal biapical pleural-parenchymal scarring. No pneumothorax, pleural effusion, or fo lena consolidation. No suspicious pulmonary nodules or masses. Heart: Within normal limits. No pericardial effusion. Mediastinum: No gross evidence of adenopathy. Lower Neck: No significant findings. Abdomen: Liver: Unremarkable. Gallbladder and Bile ducts: Unremarkable. Pancreas: Fatty infiltration. Spleen: Unremarkable. Adrenal glands: Unremarkable. Kidneys and Ureters: Unremarkable. No hydronephrosis. Stomach and Bowel: Small hiatal hernia. The appendix is within normal limits. No evidence of bowel ob struction. Peritoneum: No evidence of pneumoperitoneum, free fluid, or adenopathy. Bladder: Unremarkable. Reproductive: Prostate gland is enlarged measuring 5.3 cm in transverse dimension.. Abdominal wall/soft tissues: Tiny fat filled umbilical hernia. Musculoskeletal: The osseous structures appear intact. IMPRESSION: 1. No evidence for thoracic aortic dissection or pulmonary embolism. 2. No acute intra-abdominal/pelvic process. 3. Small hiatal hernia.
[2022-11-21] MEDS ORDERED: NITROGLYCERIN SL TABS 0.4 MG TAB SUBLINGUAL PRN (12:40)
[2022-11-21] MEDS ORDERED: NALOXONE 0.4 MG/ML 1 ML VIAL IV PRN ×2 (13:19→17:26)
--- NOTE | 2022-11-21 15:27 | ED ---
General Adult HPI - General Chief complaint: Chest Pain Stated complaint: sob, chest pain, back pain Time Seen by Provider: 11/21/22 09:48 Source: patient, RN notes reviewed, old records reviewed Mode of arrival: ambulatory Limitations: no limitations - History of Present Illness Initial comments: Patient is a 56-year-old male who presents emergency Department complaining of chest pain since yesterday. He has a history of hypothyroidism on levothyrox ine. Presents complaining of left-sided chest pain since yesterday with radiation towards his back. States it goes between the shoulder blades and his back. Endorses intermittent shortness of breath. Denies orthopnea or PND. Denies lower extremity swelling. No history of blood clots. Denies any abdominal pain, nausea, vomiting. Denies any headaches, weakness. When shoveling snow yesterday, patient went inside, and sat down when the chest pain solicited afterwards. Has been more or less constant since. No associated pain with movement. No associated pain with palpation. Presents for further evaluation at this time. - Related Data Home Medications Medication Instructions Recorded Confirmed Levothyroxine Sodium [Synthroid] 75 mcg PO DAILY@1500 08/08/21 11/21/22 Allergies Allergy/AdvReac Type Severity Reaction Status Date / Time promethazine HCl AdvReac MAKES Verified 11/21/22 11:05 [From Phenergan] PATIENT "JITTERY" Review of Systems ROS Statement: Those systems with pertinent positive or pertinent negative responses have been documented in the HPI. Review of Systems: CONST: Denies fever EYES: Denies blurry vision ENT: Denies nasal congestion C/V: Endorses chest pain RESP: Denies shortness of breath GI: Denies abdominal pain : Denies dysuria SKIN: Denies rash. MSK: Denies joint pain. NEURO: Denies headache ROS Other: All systems not noted in ROS Statement are negative. Past Medical History Past Medical History: No Reported History Additional Past Medical History / Comment(s): Hypothyroidism History of Any Multi-Drug Resistant Organisms: None Reported Past Surgical History: No Surgical Hx Reported Additional Past Surgical History / Comment(s): Eye surgery. Past Psychological History: No Psychological Hx Reported Smoking Status: Never smoker Past Alcohol Use History: None Reported Past Drug Use History: None Reported - Past Family History Father Family Medical History: Coronary Artery Disease (CAD) General Exam - General Exam Comments Initial Comments: General: Appears in no acute distress. HEAD: Normal with no signs of head trauma. EYES: PERRLA, EOMI, conjunctiva normal, no discharge. ENT: Hearing grossly intact, normal oropharynx. RESPIRATORY: Clear breath sounds bilaterally. No wheezes, rales, or rhonchi. C/V: Regular rate and rhythm. S1 and S2 auscultated, no edema, peripheral pulses 2+ and intact throughout. Chest pain nonreproducible on palpation. ABD: Abd is soft, nontender, nondistended EXT: Normal range of motion, no obvious deformity SKIN: No rashes or lesions observed on exposed skin. NEURO: Alert and oriented 4. Limitations: no limitations Course Vital Signs 11/21/22 11/21/22 11/21/22 09:27 10:00 10:11 Temperature 98.2 F Pulse Rate 90 76 74 Respiratory 18 8 L 18 Rate Blood Pressure 163/95 123/91 120/89 O2 Sat by Pulse 99 97 97 Oximetry 11/21/22 11/21/22 11/21/22 10:30 11:00 11:30 Temperature Pulse Rate 76 77 71 Respiratory 16 18 18 Rate Blood Pressure 120/89 123/97 139/92 O2 Sat by Pulse 96 97 97 Oximetry Medical Decision Making - Medical Decision Making Based on the patient's presentation and physical exam, I'm concerned for acute cardiopulmonary etiology for his current chest pain. We will obtain cardiopulmonary laboratory studies, as well as viral swabs. He was in agreement this plan. He will be given 324 mg of aspirin, as well as nitro tablets. There is concern for the potential for an aortic catastrophe considering his chest pain with radiation straight through to his back following exertion. I did recommend that we obtain a CT angiogram to evaluate for aortic catastrophe as well as pedal. He was in agreement this plan. Vital signs within except for limits. EKG showed no signs of acute ischemia. CTA of the chest revealed no obvious aortic dissection or PE. No other obvious findings. Laboratory studies are remarkable for an undetectable troponin. Negative Covid, flu, RSV. Remainder the labs are unremarkable. On reevaluation, nitro glycerin did nothing for the chest pain. He is resting comfortable he. I did offer other analgesia medications but he declined at this time. I recommended admission as the patient's heart score is moderate at 4. Patient did accept the admission. Cardiology will be consulted. Troponins will be trended. I spoke with the admitting physician, Dr. Mata accepted the patient. Was pt. sent in by a medical professional or institution (, SHERYL, PHARMACY COORDINATOR, urgent care, hospital, or alf...) When possible be specific @ -No Did you speak to anyone other than the patient for history (EMS, parent, family, police, friend...)? What history was obtained from this source @ -No Did you review nursing and triage notes (agree or disagree)? Why? @ -I reviewed and agree with nursing and triage notes Were old charts reviewed (outside hosp., previous admission, EMS record, old EKG, old radiological studies, urgent care reports/EKG's, alf records)? Report findings @ -Yes, prior charts from July 2021 were reviewed including EKG. Differential Diagnosis (chest pain, altered mental status, abdominal pain women, abdominal pain men, vaginal bleeding, weakness, fever, dyspnea, syncope, headache, dizziness, GI bleed, back pain, seizure, CVA, palpatations, mental health)? @ -Differential Chest Pain: Stable Angina, Unstable Angina, STEMI, NSTEMI Aortic Dissection, Pneumothorax, Musculoskeletal, Esophageal Spasm GERD, Cholecystitis, Pancreatitis, Zoster, this is not meant to be an all-inclusive list. EKG interpreted by me (3pts min.). @ -As above X-rays interpreted by me (1pt min.). @ -None done CT interpreted by me (1pt min.). @ -CT angiogram evaluating for dissection and PE was negative for aortic dissection pulmonary embolus and. U/S interpreted by me (1pt. min.). @ -None done What testing was considered but not performed or refused? (CT, X-rays, U/S, labs)? Why? @ -None What meds were considered but not given or refused? Why? @ -None Did you discuss the management of the patient with other professionals (professionals i.e. , SHERYL, PHARMACY COORDINATOR, lab, RT, psych nurse, social work supervisor, printed circuit board panels deburrer, teacher, president and chief commercial officer, field nurse case manager)? Give summary @ -Yes, spoke with the admitting physician Dr. mata accepted the patient. Was smoking cessation discussed for >3mins.? @ -No Was critical care preformed (if so, how long)? @ -No Were there social determinants of health that impacted care today? How? (Homelessness, low income, unemployed, alcoholism, drug addiction, transportation, low edu. Level, literacy, decrease access to med. care, long term, rehab)? @ -No Was there de-escalation of care discussed even if they declined (Discuss DNR or withdrawal of care, Hospice)? DNR status @ -No What co-morbidities impacted this encounter? (DM, HTN, Smoking, COPD, CAD, Cancer, CVA, ARF, Chemo, Hep., AIDS, mental health diagnosis, sleep apnea, morbid obesity)? @ -None Was patient admitted / discharged? Hospital course, mention meds given and route, prescriptions, significant lab abnormalities, going to OR and other pertinent info. @ -Patient was admitted to observation telemetry. See above for ED course. Undiagnosed new problem with uncertain prognosis? @ -No Drug Therapy requiring intensive monitoring for toxicity (Heparin, Nitro, Insulin, Cardizem)? @ -No Were any procedures done? @ -No Diagnosis/symptom? @ -Chest pain of unknown etiology Acute, or Chronic, or Acute on Chronic? @ -Acute Uncomplicated (without systemic symptoms) or Complicated (systemic symptoms)? @ -Uncomplicated Side effects of treatment? @ -No Exacerbation, Progression, or Severe Exacerbation? @ -No Poses a threat to life or bodily function? How? (Chest pain, [place], [place], pneumonia, PE, COPD, DKA, ARF, appy, cholecystitis, CVA, Diverticulitis, Homicidal, Suicidal, threat to staff... and all critical care pts) @ -Yes, has the potential if untreated can result in significant morbidity and mortality. - Lab Data Result diagrams: 11/21/22 10:12 11/21/22 10:12 Lab Results 11/21/22 11/21/22 11/21/22 Range/Units 10:12 10:12 10:12 WBC 4.7 (3.8-10.6) k/uL RBC 4.68 (4.30-5.90) m/uL Hgb 14.6 (13.0-17.5) gm/dL Hct 41.6 (39.0-53.0) % MCV 88.8 (80.0-100.0) fL MCH 31.2 (25.0-35.0) pg MCHC 35.1 (31.0-37.0) g/dL RDW 12.4 (11.5-15.5) % Plt Count 181 (150-450) k/uL MPV 8.5 Neutrophils % 65 % Lymphocytes % 19 % Monocytes % 9 % Eosinophils % 4 % Basophils % 1 % Neutrophils # 3.0 (1.3-7.7) k/uL Lymphocytes # 0.9 L (1.0-4.8) k/uL Monocytes # 0.4 (0-1.0) k/uL Eosinophils # 0.2 (0-0.7) k/uL Basophils # 0.0 (0-0.2) k/uL PT 10.8 (9.0-12.0) sec INR 1.0 (<1.2) APTT 27.5 (22.0-30.0) sec Sodium 138 (137-145) mmol/L Potassium 4.4 (3.5-5.1) mmol/L Chloride 108 H (98-107) mmol/L Carbon Dioxide 22 (22-30) mmol/L Anion Gap 8 mmol/L BUN 22 H (9-20) mg/dL Creatinine 0.94 (0.66-1.25) mg/dL Est GFR (CKD-EPI)AfAm >90 (>60 ml/min/1.73 sqM) Est GFR (CKD-EPI)NonAf >90 (>60 ml/min/1.73 sqM) Glucose 113 H (74-99) mg/dL Calcium 9.2 (8.4-10.2) mg/dL Magnesium 1.8 (1.6-2.3) mg/dL Total Bilirubin 0.8 (0.2-1.3) mg/dL AST 34 (17-59) U/L ALT 38 (4-49) U/L Alkaline Phosphatase 49 (38-126) U/L Troponin I (0.000-0.034) ng/mL NT-Pro-B Natriuret Pep pg/mL Total Protein 7.2 (6.3-8.2) g/dL Albumin 4.5 (3.5-5.0) g/dL Amylase 57 (30-110) U/L Lipase 133 (23-300) U/L Influenza Type A (PCR) (Not Detectd) Influenza Type B (PCR) (Not Detectd) RSV (PCR) (Not Detectd) SARS-CoV-2 (PCR) (Not Detectd) 11/21/22 11/21/22 11/21/22 Range/Units 10:12 10:12 10:12 WBC (3.8-10.6) k/uL RBC (4.30-5.90) m/uL Hgb (13.0-17.5) gm/dL Hct (39.0-53.0) % MCV (80.0-100.0) fL MCH (25.0-35.0) pg MCHC (31.0-37.0) g/dL RDW (11.5-15.5) % Plt Count (150-450) k/uL MPV Neutrophils % % Lymphocytes % % Monocytes % % Eosinophils % % Basophils % % Neutrophils # (1.3-7.7) k/uL Lymphocytes # (1.0-4.8) k/uL Monocytes # (0-1.0) k/uL Eosinophils # (0-0.7) k/uL Basophils # (0-0.2) k/uL PT (9.0-12.0) sec INR (<1.2) APTT (22.0-30.0) sec Sodium (137-145) mmol/L Potassium (3.5-5.1) mmol/L Chloride (98-107) mmol/L Carbon Dioxide (22-30) mmol/L Anion Gap mmol/L BUN (9-20) mg/dL Creatinine (0.66-1.25) mg/dL Est GFR (CKD-EPI)AfAm (>60 ml/min/1.73 sqM) Est GFR (CKD-EPI)NonAf (>60 ml/min/1.73 sqM) Glucose (74-99) mg/dL Calcium (8.4-10.2) mg/dL Magnesium (1.6-2.3) mg/dL Total Bilirubin (0.2-1.3) mg/dL AST (17-59) U/L ALT (4-49) U/L Alkaline Phosphatase (38-126) U/L Troponin I <0.012 (0.000-0.034) ng/mL NT-Pro-B Natriuret Pep 43 pg/mL Total Protein (6.3-8.2) g/dL Albumin (3.5-5.0) g/dL Amylase (30-110) U/L Lipase (23-300) U/L Influenza Type A (PCR) Not Detected (Not Detectd) Influenza Type B (PCR) Not Detected (Not Detectd) RSV (PCR) Not Detected (Not Detectd) SARS-CoV-2 (PCR) Not Detected (Not Detectd) - EKG Data -: EKG Interpreted by Me EKG Comments: 12-lead Electrocardiogram Interpretation Note EKG was reviewed and interpreted by myself. 12-lead ECG performed at 0938 is interpreted by me as revealing normal sinus rhythm at a rate of 77 beats per minute. [place] is normal. [place] interval is 211 ms, QRS duration is 95 ms, QTc is 404 ms.. There were no ST or T wave abnormalities to suggest myocardial ischemia or injury. R wave progression across the precordium was satisfactory. By my interpretation this EKG is non-diagnostic for acute ischemia. When c ompared with EKG from July 2021, no significant change. Disposition Clinical Impression: Chest pain Disposition: ADMITTED IP TO THIS HOSP Condition: Stable Time of Disposition: 13:00
[2022-11-21] MEDS: HEPARIN SODIUM,PORCINE/PF 5,000 UNIT/0.5 ML SYRINGE SQ SCH ×2 (16:18→23:29)
[2022-11-21] MEDS ORDERED: ONDANSETRON 4 MG/2 ML VIAL IVP PRN (17:20)
[2022-11-21] MEDS ORDERED: LORazepam 0.5 MG TAB PO PRN (17:20)
[2022-11-21] MEDS ORDERED: TEMAZEPAM 15 MG CAP PO PRN (17:20)
[2022-11-21] MEDS ORDERED: CALCIUM CARBONATE 500 MG CHEWABLE PO PRN (17:20)
[2022-11-21] MEDS ORDERED: LACTULOSE 20 GM/30 ML CUP PO PRN (17:20)
--- NOTE | 2022-11-21 17:30 | P.HPIM ---
History of Present Illness H&P Date: 11/21/22 Chief Complaint: Chest pressure This is a pleasant 56-year-old patient follows with Dr. Guardado. Chronic stable medical conditions include hypothyroid, GERD, insomnia, Patient other active. Goes to gym 3 times a week. Works on the treadmill also. Patient is seen by me in the ER room 4 Yesterday patient samples for about 1 hour. And midback 2016 down. Then went to his girlfriend's parent's house that he developed left precordial chest discomfort. That went to the back. My shortness of breath. Did feel tired. No dizziness no lightheadedness no perspiration. Symptoms lasted overnight. Decided to come in. Otherwise patient other active. Patient is accompanied by his girlfriend in the room. Review of systems: GEN.: Tired EYES: None HEENT: None NECK: None RESPIRATORY: None CARDIOVASCULAR: As above GASTROINTESTINAL: Occasional GERD] GENITOURINARY: None MUSCULOSKELETAL: None LYMPHATICS: None HEMATOLOGICAL: None PSYCHIATRY: None NEUROLOGICAL: None Past medical history to include: Hypothyroid, GERD, insomnia Social history: Does not smoke or drink alcohol. Retired from [employer]. Denies use of any recreational drugs. Physical examination: VITAL SIGNS: 98.2, 90, 18, 123.91, 97% room air GENERAL: BMI 31.2, declining bed comfortable. EYES: Pupils equal. Conjunctiva normal. HEENT: External appearance of nose and ears normal, oral cavity grossly normal. NECK: JVD not raised; masses not palpable. HEART: First and second heart sounds are normal; no edema. LUNGS: Respiratory rate normal; clear to auscultation. ABDOMEN: Soft, nontender, liver spleen not palpable, no masses palpable. PSYCH: Alert and oriented x3; mood and affect normal. MUSCULOSKELETAL:No Clubbing/cyanosis;muscles-grossly intact NEUROLOGICAL: Cranial nerves grossly intact; no facial asymmetry, power and sensation grossly intact. LYMPHATICS: No lymph nodes palpable in the axilla and neck INVESTIGATIONS, reviewed in the clinical context: White count 4.7 hemoglobin 14.6 platelets 181 potassium 4.4 BUN 22 creatinine 0.94 Troponin I less than 0.0122 ProBNP 43 Influenza type A/-B/RSV/COVID-19: Not detected EKG tracing personally reviewed by me-normal sinus rhythm. Some ectopic. CT angiogram of the thoracolumbar abdomen pelvis hour bout: Unremarkable. No dissection. Assessment plan: -Left precordial chest pain going to the back. Symptoms lasting several hours/overnight. Patient at baseline is rather active and goes to gym 3 times a week. Patient had shoveled snow for an hour. This could well be muscular schedule. Rule out cardiac cause. Troponins are negative. Patient may benefit from stress test. -Hypothyroid Synthroid 75 g a day -GERD Pepcid 20 mg twice a day -Chronic insomnia Restoril when necessary Telemetry. Serial cardiac enzymes. Cardiology consulted. Care was discussed with the patient and the culture the bedside. Questions answered. Past Medical History Past Medical History: No Reported History Additional Past Medical History / Comment(s): Hypothyroidism History of Any Multi-Drug Resistant Organisms: None Reported Past Surgical History: No Surgical Hx Reported Additional Past Surgical History / Comment(s): Eye surgery. Past Psychological History: No Psychological Hx Reported Smoking Status: Never smoker Past Alcohol Use History: None Reported Past Drug Use History: None Reported - Past Family History Father Family Medical History: Coronary Artery Disease (CAD) Medications and Allergies Home Medications Medication Instructions Recorded Confirmed Type Levothyroxine Sodium [Synthroid] 75 mcg PO DAILY@1500 08/08/21 11/21/22 History Allergies Allergy/AdvReac Type Severity Reaction Status Date / Time promethazine HCl AdvReac MAKES Verified 11/21/22 11:05 [From Phenergan] PATIENT "JITTERY" Physical Exam Vitals: Vital Signs Temp Pulse Resp BP Pulse Ox 11/21/22 16:22 94 16 114/80 96 11/21/22 11:30 71 18 139/92 97 11/21/22 11:00 77 18 123/97 97 11/21/22 10:30 76 16 120/89 96 11/21/22 10:11 74 18 120/89 97 11/21/22 10:00 76 8 L 123/91 97 11/21/22 09:27 98.2 F 90 18 163/95 99 Intake and Output 11/21/22 11/21/22 11/21/22 06:59 14:59 22:59 Other: Weight 113.398 kg Results CBC & Chem 7: 11/21/22 10:12 11/21/22 10:12 Labs: Abnormal Lab Results - Last 24 Hours (Table) 11/21/22 11/21/22 Range/Units 10:12 10:12 Lymphocytes # 0.9 L (1.0-4.8) k/uL Chloride 108 H (98-107) mmol/L BUN 22 H (9-20) mg/dL Glucose 113 H (74-99) mg/dL
[2022-11-21] MEDS: FAMOTIDINE 20 MG TAB PO SCH (21:06)
[2022-11-21] MEDS: ACETAMINOPHEN TAB 325 MG TAB PO PRN (21:14)
[2022-11-22 07:37] VITALS: BP 130/73; PULSE 65; RESP 16; TEMP 97.7
[2022-11-22] MEDS: ACETAMINOPHEN TAB 325 MG TAB PO PRN (08:18)
[2022-11-22] MEDS: HEPARIN SODIUM,PORCINE/PF 5,000 UNIT/0.5 ML SYRINGE SQ SCH (08:18)
[2022-11-22] MEDS: FAMOTIDINE 20 MG TAB PO SCH (08:19)
--- NOTE | 2022-11-22 09:04 | P.CRDCN ---
History of Present Illness Consult date: 11/22/22 Consult reason: chest pain History of present illness: HISTORY OF PRESENTING ILLNESS This is a 56-year-old male past medical history significant for hypothyroidism. He follows with Dr. Shelton. We have been asked to see in consultation for chest p ain. Patient was recently hospitalized for chest pain 07/2021 at which time patient underwent a stress echo at that time which was negative. Patient is seen and examined in the emergency department. He states he has been having chest pain starting yesterday on the left side of his chest radiating to his back between his shoulder blades. Also had some shortness of breath. No orthopnea or PND. No lower extremity edema. He does exercise on a regular basis. EKG reveals sinus rhythm, heart rate 77 Echocardiogram in 2018 revealed an EF of 6065 percent, moderate concentric left ventricular hypertrophy, mild tricuspid regurgitation. CT angiogram of the aorta revealed no evidence of thoracic, aortic dissection or pulmonary embolism. No acute intra-abdominal/pelvic process. Small hiatal her arvin CBC unremarkable. Potassium 4.4, BUN 22 and creatinine 0.94. Troponin negative 3. Lipase 133. Liver function tests normal. Magnesium 1.8. Influenza A, influenza B, RSV, Covid 19 not detected REVIEW OF SYSTEMS At the time of my exam: CONSTITUTIONAL: Denies fever or chills. CARDIOVASCULAR: + chest pain, +shortness of breath, NO palpitations Denies orthopnea, PND RESPIRATORY: Denies cough. GASTROINTESTINAL: Denies abdominal pain, diarrhea, constipation, nausea or vomiting. MUSCULOSKELETAL: Denies myalgias. NEUROLOGIC: Denies numbness, tingling, headacbe or weakness. ENDOCRINE: Denies fatigue, weight change, polydipsia or polyurina. GENITOURINARY: Denies burning, hematuria or urgency with micturation. HEMATOLOGIC: Denies history of anemia or bleeding. PHYSICAL EXAMINATION CONSTITUTIONAL: No apparent distress. HEENT: Head is normocephalic. Pupils are equal, round. Sclerae anicteric. Mucous membranes of the mouth are moist. No JVD. No carotid bruit. CHEST EXAMINATION: Lungs are clear to auscultation. No chest wall tenderness is noted on palpation or with deep breathing. HEART EXAMINATION: Regular rate and rhythm. S1, S2 heard. No murmurs, gallops or rub. ABDOMEN: Soft, nontender. EXTREMITIES: 2+ peripheral pulses, no lower extremity edema and no calf tenderness. NEUROLOGIC EXAMINATION: Patient is awake, alert and oriented x3. ASSESSMENT Chest pain, atypical, acute coronary syndrome has been ruled out. Hypothyroidism PLAN: Perform stress echo test to assess for stress induced cardiac ischemia. If abnormal will consider coronary angiography. Obtain 2-D echocardiogram to assess cardiac structure and function If echocardiogram and stress echocardiogram are within normal limits, patient is cleared for discharge from cardiology and patient may follow up with Dr. JEFFREY Shelton in the office. Thank you kindly for this consultation. Nurse Practitioner note has been reviewed, I agree with a documented findings and plan of care. Patient was seen and examined. Past Medical History Past Medical History: No Reported History Additional Past Medical History / Comment(s): Hypothyroidism History of Any Multi-Drug Resistant Organisms: None Reported Past Surgical History: No Surgical Hx Reported Additional Past Surgical History / Comment(s): Eye surgery. Past Psychological History: No Psychological Hx Reported Smoking Status: Never smoker Past Alcohol Use History: None Reported Past Drug Use History: None Reported - Past Family History Father Family Medical History: Coronary Artery Disease (CAD) Medications and Allergies Home Medications Medication Instructions Recorded Confirmed Type Levothyroxine Sodium [Synthroid] 75 mcg PO DAILY@1500 08/08/21 11/21/22 History Allergies Allergy/AdvReac Type Severity Reaction Status Date / Time promethazine HCl AdvReac MAKES Verified 11/21/22 11:05 [From Phenergan] PATIENT "JITTERY" Physical Exam Vitals: Vital Signs Temp Pulse Pulse Resp BP BP Pulse Ox 11/22/22 03:22 97.6 F 63 15 127/79 97 11/21/22 23:27 97.5 F L 71 18 137/90 98 11/21/22 21:43 53 L 12 124/94 94 L 11/21/22 16:22 94 16 114/80 96 11/21/22 11:30 71 18 139/92 97 11/21/22 11:00 77 18 123/97 97 11/21/22 10:30 76 16 120/89 96 11/21/22 10:11 74 18 120/89 97 11/21/22 10:00 76 8 L 123/91 97 11/21/22 09:27 98.2 F 90 18 163/95 99 Intake and Output 11/21/22 11/22/22 11/22/22 22:59 06:59 14:59 Other: Weight 113.398 kg Results 11/21/22 10:12 11/21/22 10:12 Cardiac Enzymes 11/21/22 11/21/22 11/21/22 Range/Units 10:12 10:12 15:55 AST 34 (17-59) U/L Troponin I <0.012 <0.012 (0.000-0.034) ng/mL 11/21/22 Range/Units 19:05 AST (17-59) U/L Troponin I <0.012 (0.000-0.034) ng/mL Coagulation 11/21/22 Range/Units 10:12 PT 10.8 (9.0-12.0) sec APTT 27.5 (22.0-30.0) sec CBC 11/21/22 Range/Units 10:12 WBC 4.7 (3.8-10.6) k/uL RBC 4.68 (4.30-5.90) m/uL Hgb 14.6 (13.0-17.5) gm/dL Hct 41.6 (39.0-53.0) % Plt Count 181 (150-450) k/uL Comprehensive Metabolic Panel 11/21/22 Range/Units 10:12 Sodium 138 (137-145) mmol/L Potassium 4.4 (3.5-5.1) mmol/L Chloride 108 H (98-107) mmol/L Carbon Dioxide 22 (22-30) mmol/L BUN 22 H (9-20) mg/dL Creatinine 0.94 (0.66-1.25) mg/dL Glucose 113 H (74-99) mg/dL Calcium 9.2 (8.4-10.2) mg/dL AST 34 (17-59) U/L ALT 38 (4-49) U/L Alkaline Phosphatase 49 (38-126) U/L Total Protein 7.2 (6.3-8.2) g/dL Albumin 4.5 (3.5-5.0) g/dL Current Medications Generic Name Dose Route Start Last Admin Trade Name Freq PRN Reason Stop Dose Admin Acetaminophen 650 mg 11/21/22 17:20 11/21/22 21:14 Acetaminophen Tab 325 Mg Tab PO 650 mg Q6HR PRN Administration Mild Pain or Fever > 100.5 Calcium Carbonate/Glycine 1,000 mg 11/21/22 17:20 Calcium Carbonate 500 Mg Chewable PO Q4HR PRN Dyspepsia Famotidine 20 mg 11/21/22 21:00 11/21/22 21:06 Famotidine 20 Mg Tab PO 20 mg BID HEATH Administration Heparin Sodium (Porcine) 5,000 unit 11/21/22 16:00 11/21/22 23:29 Heparin Sodium,Porcine/Pf 5,000 Unit/0.5 Ml Syringe SQ 5,000 unit Q8HR HEATH Administration Lactulose 20 gm 11/21/22 17:20 Lactulose 20 Gm/30 Ml Cup PO DAILY PRN Constipation Levothyroxine Sodium 75 mcg 11/22/22 15:00 Levothyroxine 75 Mcg Tab PO DAILY@1500 HEATH Lorazepam 0.5 mg 11/21/22 17:20 Lorazepam 0.5 Mg Tab PO Q6HR PRN Anxiety Naloxone HCl 0.2 mg 11/21/22 13:19 Naloxone 0.4 Mg/Ml 1 Ml Vial IV Q2M PRN Opioid Reversal Naloxone HCl 0.2 mg 11/21/22 17:26 Naloxone 0.4 Mg/Ml 1 Ml Vial IV Q2M PRN Opioid Reversal Nitroglycerin 0.4 mg 11/21/22 12:40 11/21/22 14:02 Nitroglycerin Sl Tabs 0.4 Mg Tab SUBLINGUAL 0.4 mg Q5M PRN Administration Chest Pain Ondansetron HCl 4 mg 11/21/22 17:20 Ondansetron 4 Mg/2 Ml Vial IVP Q8HR PRN Nausea And Vomiting Temazepam 15 mg 11/21/22 17:20 Temazepam 15 Mg Cap PO HS PRN Insomnia Intake and Output 11/21/22 11/22/22 11/22/22 22:59 06:59 14:59 Other: Weight 113.398 kg 11/21/22 10:12 11/21/22 10:12
[2022-11-22 10:21] LABS: Basophils # (A) 0.04 X 10*3/uL (0.00-0.10); Eosinophils # (A) 0.22 X 10*3/uL (0.04-0.35); Eosinophils % (A) 5.5 %; HCT 42.7 % (39.6-50.0); HGB 14.5 g/dL (13.0-17.0); Immature Grans, Automated 0.3 %; Lymphocytes # (A) 0.95 X 10*3/uL (0.90-5.00); Lymphocytes % (A) 23.8 %; MCH 31.1 pg (27.0-32.0); MCV 91.6 fL (80.0-97.0); Mean Platelet Volume 11.1 fL (9.5-12.2); Monocytes # (A) 0.47 X 10*3/uL (0.20-1.00); Monocytes % (A) 11.8 %; NRBC Per 100 WBC 0 /100 WBCS (0.0-0.0); Neutrophils # (A) 2.31 X 10*3/uL (1.80-7.70); Neutrophils % (A) 57.6 %; Platelet Count 168 X 10*3/uL (140-440); RBC 4.66 X 10*6/uL (4.40-5.60); RDW 12.3 % (11.5-14.5)
[2022-11-22 10:43] LABS: African American GFR (CKD) 96.4 (60.0-200.0); Anion Gap 9.8 mmol/L (10.00-18.00); BUN/Creat Ratio 23.8 Ratio (12.00-20.00); Blood Urea Nitrogen 23.8 mg/dL (9.0-27.0); Calcium 9.4 mg/dL (8.7-10.3); Carbon Dioxide 26.2 mmol/L (20.0-27.5); Non-African American GFR(CKD) 83.2 (60.0-200.0); Potassium 4.3 mmol/L (3.5-5.5)
--- NOTE | 2022-11-22 11:19 | CA ---
Transthoracic Echo Report Name: Daniel Manzo Age: 56 Gender: M : 1965 Exam Date: 11/22/2022 08:46 Exam Location: [facility] Ht (in): 75 Wt (lb): 250 Ordering Physician: Fahad Frausto MD ([id number]) Attending/Referring Phys: Lisbet LUDWIG Travel Nurse Autumn Dozier RDCS Procedure CPT: Indications: Chest Pain Cardiac Hx: Technical Quality: Fair Contrast 1: Total Dose (mL): Contrast 2: Total Dose (mL): MEASUREMENTS (Male / Female) Normal Values 2D ECHO LV Diastolic Diameter PLAX 4.7 cm 4.2 - 5.9 / 3.9 - 5.3 cm LV Systolic Diameter PLAX 2.7 cm IVS Diastolic Thickness 1.0 cm 0.6 - 1.0 / 0.6 - 0.9 cm LVPW Diastolic Thickness 1.1 cm 0.6 - 1.0 / 0.6 - 0.9 cm LV Relative Wall Thickness 0.4 RV Internal Dim ED PLAX 4.1 cm LA Volume 87.2 cm??? 18 - 58 / 22 - 52 cm??? M-MODE Aortic Root Diameter MM 3.3 cm LA Systolic Diameter MM 4.0 cm LA Ao Ratio MM 1.2 AV Cusp Separation MM 2.4 cm DOPPLER AV Peak Velocity 108.2 cm/s AV Peak Gradient 4.7 mmHg LVOT Peak Velocity 86.0 cm/s LVOT Peak Gradient 3.0 mmHg MV Area PHT 3.4 cm??? Mitral E Point Velocity 60.3 cm/s Mitral A Point Velocity 75.5 cm/s Mitral E to A Ratio 0.8 MV Deceleration Time 222.2 ms MV E' Velocity 6.5 cm/s Mitral E to MV E' Ratio 9.3 TR Peak Velocity 197.3 cm/s TR Peak Gradient 15.6 mmHg Right Ventricular Systolic Press 20.6 mmHg FINDINGS Left Ventricle Normal Left ventricular size, wall thickness, systolic function with no obvious regional wall motion abnormalities. Normal Left ventricular diastolic filling pattern. Left ventricular ejection fraction is estimated at 55-60 %. Right Ventricle Mild right ventricular dilatation. Right Atrium Normal right atrial size. Left Atrium Mild left atrial dilatation. Mitral Valve Structurally normal mitral valve. Mild mitral regurgitation. Aortic Valve Trileaflet aortic valve. No aortic valve stenosis or regurgitation. Tricuspid Valve Structurally normal tricuspid valve. Mild tricuspid regurgitation. Pulmonic Valve Trace pulmonic regurgitation. Pericardium No pericardial effusion. Aorta Normal size aortic root and proximal ascending aorta. CONCLUSIONS Normal LV function Mild mitral regurgitation Mild tricuspid regurgitation Previewed by: Dr. Fahad Frausto MD (Electronically Signed) Final Date: 22 November 2022 11:18
--- NOTE | 2022-11-22 11:53 | CA ---
Stress Echo Report Daniel Manzo Age: 56 Gender: M : 1965 Exam Date: 11/22/2022 11:05 Exam Location: [facility] Ht (in): 75 Wt (lb): 250 Ordering Physician: Fahad Frausto MD ([id number]) Referring Physician: Lisbet LUDWIG It Service Technician: BRYSON Technologist Procedure CPT: Indication: Chest Pain ICD-9 Codes: Rhythm: Patient History: Chest pain Cardiac Medications: Medications in past 24 hours: Contrast: Stress Results Protocol: Davin Total dose(mL): Exercise Duration (min:sec): Max ST Depression (mm): Angina Score: Barba Score: METS: 10.3 Resting HR: 83 Resting BP: 121 / 85 Peak HR: 149 Peak BP: 184 / 111 Max Predicted HR: 163 91 % Max Predicted HR Target HR: 139 Double Product: [id number] Stress Summary: BP Response: Reason for Termination: Reached target heart rate or work-load Cardiac Symptoms: No symptoms ECG Analysis Resting ECG: Normal sinus rhythm with poor R-wave progression Stress ECG: Patient exercised on Davin protocol for 8 and half minutes achieving 10 metastases 85% of predicted maximal heart rate without chest pain or diagnostic ST segment depression Arrhythmia: Echo Analysis Resting Echo: Baseline echo shows normal left ventricular size wall motion systolic function Peak Echo Analysis: Post exercise there is normal hyperdynamic response of all segments of myocardium noted MEASUREMENTS (Male/Female) Normal Values CONCLUSIONS Good exercise tolerance Negative stress test by EKG criteria Negative stress echo Dr. Fahad Frausto MD (Electronically Signed) Final Date: 22 November 2022 11:52
[2022-11-22] MEDS ORDERED: LEVOTHYROXINE 75 MCG TAB PO SCH (15:00)
--- NOTE | 2022-11-22 21:36 | P.DS ---
Providers Date of admission: 11/21/22 13:19 Expected date of discharge: 11/22/22 Attending physician: Donny Anaya Consults: 11/21/22 13:19 Consult Physician Routine Consulting Provider: [facility] Consult Reason/Comments: chest pain Do you want consulting provider notified?: Yes Primary care physician: Bucky Guardado [facility] Course: Chief Complaint: Chest pressure This is a pleasant 56-year-old patient follows with Dr. Guardado. Chronic stable medical conditions include hypothyroid, GERD, insomnia, Patient other active. Goes to gym 3 times a week. Works on the treadmill also. Patient is seen by me in the ER room 4 Yesterday patient shoveled snow for about 1 hour. Came back and sat down. Then went to his girlfriend's parent's house that he developed left precordial chest discomfort. That went to the back. My shortness of breath. Did feel tired. No dizziness no lightheadedness no perspiration. Symptoms lasted overnight. Decided to come in. Otherwise patient other active. Patient is accompanied by his girlfriend in the room. November 22: Doing well. Stress echocardiogram unremarkable. Discussed with the patient cultured. Pain felt to be muscular skeletal. He will follow-up cardiology outpatient. Past medical history to include: Hypothyroid, GERD, insomnia Social history: Does not smoke or drink alcohol. Retired from [employer]. Denies use of any recreational drugs. Physical examination: VITAL SIGNS: 97.7, 65, 16, 130/73, 99% room air GENERAL: Comfortable EYES: Pupils equal. Conjunctiva normal. HEENT: External appearance of nose and ears normal, oral cavity grossly normal. NECK: JVD not raised; masses not palpable. HEART: First and second heart sounds are normal; no edema. LUNGS: Respiratory rate normal; clear to auscultation. ABDOMEN: Soft, nontender, liver spleen not palpable, no masses palpable. PSYCH: Alert and oriented x3; mood and affect normal. INVESTIGATIONS, reviewed in the clinical context: 2-D echocardiogram: EF 55-60%. Negative stress echocardiogram White count 4.7 hemoglobin 14.6 platelets 181 potassium 4.4 BUN 22 creatinine 0.94 Troponin I less than 0.0122 ProBNP 43 Influenza type A/-B/RSV/COVID-19: Not detected EKG tracing personally reviewed by me-normal sinus rhythm. Some ectopic. CT angiogram of the thoracolumbar abdomen pelvis hour bout: Unremarkable. No dissection. Assessment plan: -Left precordial chest pain going to the back. [place] to be muscular skeletal Negative stress echocardiogram -Hypothyroid Synthroid 75 g a day -GERD Pepcid 20 mg twice a day -Chronic insomnia Restoril when necessary Disposition: Home Plan - Discharge Summary New Discharge Prescriptions: New Famotidine [Pepcid] 20 mg PO BID #60 tab Continue Levothyroxine Sodium [Synthroid] 75 mcg PO DAILY@1500 Discharge Medication List Levothyroxine Sodium [Synthroid] 75 mcg PO DAILY@1500 08/08/21 [History] Famotidine [Pepcid] 20 mg PO BID #60 tab 11/22/22 [Rx] Follow up Appointment(s)/Referral(s): Bucky Guardado DO [Primary Care Provider] - 11/29/22 10:00 am Fahad Frausto MD [STAFF PHYSICIAN] - 01/04/23 3:15 pm Patient Instructions/Handouts: Cardiac Stress Test (GEN) Discharge Disposition: HOME SELF-CARE
== END 2022-11-22 13:50 | disposition home or self-care (01) ==
LOC: EC 09:21 → 6NMEDSUR 13:19
PROVIDERS: ADMIT Hospitalist; ATTEND Hospitalist
DX: R07.2 Precordial pain (principal); E03.9 Hypothyroidism, unspecified; G47.00 Insomnia, unspecified; K21.9 Gastro-esophageal reflux disease without esophagitis; Z20.822 Contact with and (suspected) exposure to COVID-19; Z79.890 Hormone replacement therapy; Z82.49 Family history of ischemic heart disease and other diseases of the circulatory system
CPT/HCPCS: 96372 ×3; 99285; 36415; 93005; 93306; 93351; 83880; 80053; 80048; 82150; 83690; 83735; 84484; 85025 ×2; 85610; 85730; 87636; 71275; 74174; G0378 ×2; Q9967; J1644 ×2

== ENCOUNTER 2023-04-21 15:03 | Observation (INO) | payer BC ==
[2023-04-21] MEDS ORDERED: SODIUM CHLORIDE 0.9% 500 ML 500 ML IV STA (15:35)
--- NOTE | 2023-04-21 15:50 | ED ---
General Adult HPI - General Chief complaint: Abdominal Pain Stated complaint: Abd Pain Time Seen by Provider: 04/21/23 15:10 Source: patient, RN notes reviewed, old records reviewed Mode of arrival: ambulatory Limitations: no limitations - History of Present Illness Initial comments: 57-year-old male presents for evaluation of generalized abdominal discomfort and constipation. Symptoms have been present for the past 11 days. He's had the sensation of easy satiety and bloating. Patient also complains of substernal chest discomfort which has also been present for several days. He states he had a similar episode in October of this year which resulted in admission and stress testing which she reports is negative. He does have some pain and discomfort although this is intermittent. He's had nausea without significant vomiting. No fever. Patient has had referral for colonoscopy but has not been able to schedule this procedure yet. - Related Data Home Medications Medication Instructions Recorded Confirmed Levothyroxine Sodium [Synthroid] 75 mcg PO DAILY@1500 08/08/21 04/21/23 Allergies Allergy/AdvReac Type Severity Reaction Status Date / Time promethazine HCl AdvReac MAKES Verified 04/21/23 16:08 [From Phenergan] PATIENT "JITTERY" Review of Systems ROS Statement: Those systems with pertinent positive or pertinent negative responses have been documented in the HPI. ROS Other: All systems not noted in ROS Statement are negative. Past Medical History Past Medical History: Hypertension, Thyroid Disorder Additional Past Medical History / Comment(s): Hypothyroidism History of Any Multi-Drug Resistant Organisms: None Reported Past Surgical History: No Surgical Hx Reported Additional Past Surgical History / Comment(s): Eye surgery. Past Psychological History: No Psychological Hx Reported Smoking Status: Never smoker Past Alcohol Use History: None Reported Past Drug Use History: None Reported - Past Family History Father Family Medical History: Coronary Artery Disease (CAD) General Exam Limitations: no limitations General appearance: alert, in no apparent distress Head exam: Present: atraumatic, normocephalic Eye exam: Present: normal appearance, PERRL ENT exam: Present: normal exam Neck exam: Present: normal inspection. Absent: tenderness, meningismus Respiratory exam: Present: normal lung sounds bilaterally. Absent: respiratory distress, wheezes Cardiovascular Exam: Present: regular rate, normal rhythm GI/Abdominal exam: Present: soft, distended, tenderness. Absent: guarding Extremities exam: Present: normal inspection, normal capillary refill. Absent: pedal edema Neurological exam: Present: alert, oriented X3, CN II-XII intact. Absent: motor sensory deficit Psychiatric exam: Present: normal affect, normal mood Skin exam: Present: warm, dry, intact Course Vital Signs 04/21/23 04/21/23 04/21/23 15:15 16:57 18:22 Temperature 98.1 F 98.4 F Pulse Rate 100 85 79 Respiratory 20 18 18 Rate Blood Pressure 153/75 137/92 122/92 O2 Sat by Pulse 95 98 98 Oximetry EKG Findings - EKG Comments: EKG Findings:: EKG: Sinus rhythm with PVC rate of 75, MS interval 183, QRS duration 101, QTC 410 Medical Decision Making - Medical Decision Making Was pt. sent in by a medical professional or institution (SHERYL Larsen, PUNCHBOARD FILLING MACHINE OPERATOR, urgent care, hospital, or alf...) When possible be specific @ -[No] Did you speak to anyone other than the patient for history (EMS, parent, family, police, friend...)? What history was obtained from this source @ -[No] Did you review nursing and triage notes (agree or disagree)? Why? @ -[I reviewed and agree with nursing and triage notes] Were old charts reviewed (outside hosp., previous admission, EMS record, old EKG, old radiological studies, urgent care reports/EKG's, alf records)? Report findings @ -[No old charts were reviewed] Differential Diagnosis (chest pain, altered mental status, abdominal pain women, abdominal pain men, vaginal bleeding, weakness, fever, dyspnea, syncope, headache, dizziness, GI bleed, back pain, seizure, CVA, palpatations, mental health, musculoskeletal)? @ -[Differential Abdominal Pain Men: Appendicitis, cholecystitis, diverticulosis, ischemic bowel, pancreatitis, he patitis, UTI, gastroenteritis, AAA, incarcerated hernia, bowel obstruction, constipation, inflammatory bowel, hepatitis, peptic ulcer disease, splenic infarction, perforated viscus, testicular torsion, this is not meant to be an all-inclusive list EKG interpreted by me (3pts min.). @ -EKG: Sinus rhythm with PVC rate of 75, MS interval 183, QRS duration 101, QT C 410 X-rays interpreted by me (1pt min.). @ -[None done] CT interpreted by me (1pt min.). @CT of the abdomen was performed which is negative for acute findings shows enlarged prostate. U/S interpreted by me (1pt. min.). @ -[Ultrasound of the gallbladder negative for biliary obstruction, no acute cholecystitis] What testing was considered but not performed or refused? (CT, X-rays, U/S, labs)? Why? @ -[None] What meds were considered but not given or refused? Why? @ -[None] Did you discuss the management of the patient with other professionals (professionals i.e. , PA, PUNCHBOARD FILLING MACHINE OPERATOR, lab, RT, psych nurse, social security assessor, criminal lawyer, teacher, education officer, child welfare caseworker)? Give summary @ -[Case discussed with Antonio with [facility] Was smoking cessation discussed for >3mins.? @ -[No] Was critical care preformed (if so, how long)? @ -[No] Were there social determinants of health that impacted care today? How? (Homelessness, low income, unemployed, alcoholism, drug addiction, transportatio n, low edu. Level, literacy, decrease access to med. care, group home, rehab)? @ -[No] Was there de-escalation of care discussed even if they declined (Discuss DNR or withdrawal of care, Hospice)? DNR status @ -[No] What co-morbidities impacted this encounter? (DM, HTN, Smoking, COPD, CAD, Cancer, CVA, ARF, Chemo, Hep., AIDS, mental health diagnosis, sleep apnea, morbid obesity)? @Hypothyroidism Was patient admitted / discharged? Hospital course, mention meds given and route, prescriptions, significant lab abnormalities, going to OR and other pertinent info. @ -[57-year-old male presenting for evaluation of chest discomfort, and abdominal pain with concern for constipation. I did perform workup both for his chest discomfort and abdominal pain including laboratory testing, EKG, CT and ultrasound of the gallbladder CT and ultrasound were negative for acute findings in the abdomen. EKG is sinus with PAC and PVC without ST segment elevation. Initial troponin is negative. Patient has had stress testing in October of this year which was unremarkable on his symptoms are persistent. He will benefit from observation and serial cardiac enzymes. Cardiology will be placed on consult. Undiagnosed new problem with uncertain prognosis? @ -[No] Drug Therapy requiring intensive monitoring for toxicity (Heparin, Nitro, Insulin, Cardizem)? @ -[No] Were any procedures done? @ -[No] Diagnosis/symptom? @ -Chest pain rule out, abdominal discomfort Acute, or Chronic, or Acute on Chronic? @ -Acute Uncomplicated (without systemic symptoms) or Complicated (systemic symptoms)? @ -[default] Side effects of treatment? @ -[No] Exacerbation, Progression, or Severe Exacerbation? @ -[No] Poses a threat to life or bodily function? How? (Chest pain, [place], CA, pneumonia, PE, COPD, DKA, ARF, appy, cholecystitis, CVA, Diverticulitis, Homicidal, Suicidal, threat to staff... and all critical care pts) @ -[Yes, chest pain - Lab Data Result diagrams: 04/21/23 15:44 04/21/23 15:44 Lab Results 04/21/23 04/21/23 04/21/23 Range/Units 15:44 15:44 15:44 WBC 5.4 (3.8-10.6) k/uL RBC 4.71 (4.30-5.90) m/uL Hgb 14.9 (13.0-17.5) gm/dL Hct 42.7 (39.0-53.0) % MCV 90.7 (80.0-100.0) fL MCH 31.5 (25.0-35.0) pg MCHC 34.8 (31.0-37.0) g/dL RDW 11.9 (11.5-15.5) % Plt Count 194 (150-450) k/uL MPV 8.3 Neutrophils % 74 % Lymphocytes % 15 % Monocytes % 8 % Eosinophils % 1 % Basophils % 0 % Neutrophils # 4.0 (1.3-7.7) k/uL Lymphocytes # 0.8 L (1.0-4.8) k/uL Monocytes # 0.4 (0-1.0) k/uL Eosinophils # 0.1 (0-0.7) k/uL Basophils # 0.0 (0-0.2) k/uL PT 10.9 (9.0-12.0) sec INR 1.0 (<1.2) APTT 25.6 (22.0-30.0) sec Sodium 136 L (137-145) mmol/L Potassium 4.3 (3.5-5.1) mmol/L Chloride 104 (98-107) mmol/L Carbon Dioxide 22 (22-30) mmol/L Anion Gap 10 mmol/L BUN 18 (9-20) mg/dL Creatinine 0.87 (0.66-1.25) mg/dL Est GFR (CKD-EPI)AfAm >90 (>60 ml/min/1.73 sqM) Est GFR (CKD-EPI)NonAf >90 (>60 ml/min/1.73 sqM) Glucose 108 H (74-99) mg/dL Plasma Lactic Acid Yon (0.7-2.0) mmol/L Calcium 9.3 (8.4-10.2) mg/dL Total Bilirubin 0.6 (0.2-1.3) mg/dL AST 26 (17-59) U/L ALT 24 (4-49) U/L Alkaline Phosphatase 56 (38-126) U/L Troponin I (0.000-0.034) ng/mL Total Protein 7.2 (6.3-8.2) g/dL Albumin 4.4 (3.5-5.0) g/dL Amylase 42 (30-110) U/L Lipase 144 (23-300) U/L Urine Color Urine Appearance (Clear) Urine pH (5.0-8.0) Ur Specific [place] (1.001-1.035) Urine Protein (Negative) Urine Glucose (UA) (Negative) Urine Ketones (Negative) Urine Blood (Negative) Urine Nitrite (Negative) Urine Bilirubin (Negative) Urine Urobilinogen (<2.0) mg/dL Ur Leukocyte Esterase (Negative) 04/21/23 04/21/23 04/21/23 Range/Units 15:44 15:44 16:32 WBC (3.8-10.6) k/uL RBC (4.30-5.90) m/uL Hgb (13.0-17.5) gm/dL Hct (39.0-53.0) % MCV (80.0-100.0) fL MCH (25.0-35.0) pg MCHC (31.0-37.0) g/dL RDW (11.5-15.5) % Plt Count (150-450) k/uL MPV Neutrophils % % Lymphocytes % % Monocytes % % Eosinophils % % Basophils % % Neutrophils # (1.3-7.7) k/uL Lymphocytes # (1.0-4.8) k/uL Monocytes # (0-1.0) k/uL Eosinophils # (0-0.7) k/uL Basophils # (0-0.2) k/uL PT (9.0-12.0) sec INR (<1.2) APTT (22.0-30.0) sec Sodium (137-145) mmol/L Potassium (3.5-5.1) mmol/L Chloride (98-107) mmol/L Carbon Dioxide (22-30) mmol/L Anion Gap mmol/L BUN (9-20) mg/dL Creatinine (0.66-1.25) mg/dL Est GFR (CKD-EPI)AfAm (>60 ml/min/1.73 sqM) Est GFR (CKD-EPI)NonAf (>60 ml/min/1.73 sqM) Glucose (74-99) mg/dL Plasma Lactic Acid Yon 0.8 (0.7-2.0) mmol/L Calcium (8.4-10.2) mg/dL Total Bilirubin (0.2-1.3) mg/dL AST (17-59) U/L ALT (4-49) U/L Alkaline Phosphatase (38-126) U/L Troponin I 0.015 (0.000-0.034) ng/mL Total Protein (6.3-8.2) g/dL Albumin (3.5-5.0) g/dL Amylase (30-110) U/L Lipase (23-300) U/L Urine Color Light Yellow Urine Appearance Clear (Clear) Urine pH 5.5 (5.0-8.0) Ur Specific [place] 1.008 (1.001-1.035) Urine Protein Negative (Negative) Urine Glucose (UA) Negative (Negative) Urine Ketones Negative (Negative) Urine Blood Negative (Negative) Urine Nitrite Negative (Negative) Urine Bilirubin Negative (Negative) Urine Urobilinogen <2.0 (<2.0) mg/dL Ur Leukocyte Esterase Negative (Negative) Disposition Clinical Impression: Chest pain Disposition: ADMITTED IP TO THIS HOSP Condition: Stable Is patient prescribed a controlled substance at d/c from ED?: No Referrals: Bucky Guardado DO [Primary Care Provider] - 1-2 days Time of Disposition: 18:47
[2023-04-21 16:06] LABS: Basophils % (A) 0 %; Eosinophils # (A) 0.1 k/uL (0-0.7); Eosinophils % (A) 1 %; HCT 42.7 % (39.0-53.0); HGB 14.9 gm/dL (13.0-17.5); Lymphocytes # (A) 0.8 k/uL (1.0-4.8); Lymphocytes % (A) 15 %; MCH 31.5 pg (25.0-35.0); MCHC 34.8 g/dL (31.0-37.0); MCV 90.7 fL (80.0-100.0); Mean Platelet Volume 8.3; Monocytes # (A) 0.4 k/uL (0-1.0); Monocytes % (A) 8 %; Neutrophils % (A) 74 %; Platelet Count 194 k/uL (150-450); RBC 4.71 m/uL (4.30-5.90); RDW 11.9 % (11.5-15.5); WBC 5.4 k/uL (3.8-10.6)
[2023-04-21 16:24] LABS: ALT 24 U/L (4-49); AST 26 U/L (17-59); African American GFR (CKD) >90 (>60 ml/min/1.73 sqM); Albumin 4.4 g/dL (3.5-5.0); Alkaline Phosphatase 56 U/L (38-126); Amylase 42 U/L (30-110); Anion Gap 10 mmol/L; Blood Urea Nitrogen 18 mg/dL (9-20); Calcium 9.3 mg/dL (8.4-10.2); Carbon Dioxide 22 mmol/L (22-30); Chloride 104 mmol/L (98-107); Glucose 108 mg/dL (74-99); Lipase 144 U/L (23-300); Non-African American GFR(CKD) >90 (>60 ml/min/1.73 sqM); Partial Thromboplastin Time 25.6 sec (22.0-30.0); Potassium 4.3 mmol/L (3.5-5.1); Prothrombin Time 10.9 sec (9.0-12.0); Sodium 136 mmol/L (137-145); Total Bilirubin 0.6 mg/dL (0.2-1.3); Total Protein 7.2 g/dL (6.3-8.2)
[2023-04-21 16:58] LABS: Appearance,Urine Clear (Clear); Bilirubin,Urine Negative (Negative); Blood,Urine Negative (Negative); Color,Urine Light Yellow; Glucose,Urine (UA) Negative (Negative); Ketones,Urine Negative (Negative); Leukocyte Esterase,Urine Negative (Negative); Nitrite,Urine Negative (Negative); PH, Urine 5.5 (5.0-8.0); Protein,Urine Negative (Negative); Specific Gravity,Urine 1.008 (1.001-1.035); Urobilinogen,Urine <2.0 mg/dL (<2.0)
--- NOTE | 2023-04-21 17:18 | CT ---
EXAMINATION TYPE: CT abdomen pelvis w con CT DLP: 1535.7 mGycm, Automated exposure control for dose reduction was used. DATE OF EXAM: 04/21/2023 4:56 PM COMPARISON: CT abdomen pelvis most recent from 11/21/2022 CLINICAL INDICATION:Male, 57 years old with history of abdominal pain; lower abd pain TECHNIQUE: Axial CT of the abdomen and pelvis. Sagittal and coronal reformats were created on a [employer] workstation. Contrast used:100 mL of Isovue 300 with IV Contrast, (none if empty) Oral contrast used: without Oral Contrast (none if empty) FINDINGS: LOWER CHEST: Unremarkable ABDOMEN LIVER: Unremarkable GALLBLADDER AND BILE DUCTS: Unremarkable. PANCREAS: Unremarkable. SPLEEN: Unremarkable. ADRENAL GLANDS: Unremarkable. KIDNEYS AND URETERS: No evidence of hydronephrosis or renal calculus. The ureters are unremarkable. PELVIS BLADDER: Unremarkable REPRODUCTIVE: Prostate is enlarged in size measuring 5.5 cm in transverse dimension. ABDOMEN & PELVIS STOMACH AND BOWEL: No evidence of bowel obstruction. Scattered colonic diverticula are present. There is redundant sigmoid colon. The appendix is normal. PERITONEUM/RETROPERITONEUM: No evidence of pneumoperitoneum or free fluid. VASCULATURE: No evidence of aortic aneurysm. MUSCULOSKELETAL: No acute osseous abnormalities LYMPH NODES: No gross evidence for lymphadenopathy. SOFT TISSUE/ABDOMINAL WALL: Bilateral fat-containing inguinal hernias. Fat-containing umbilical herni a. IMPRESSION: 1. No evidence for acute abdominal process. The appendix is normal. No obstructive uropathy. 2. Scattered colonic diverticula no evidence for diverticulitis.
--- NOTE | 2023-04-21 18:23 | US ---
EXAMINATION TYPE: US gallbladder DATE OF EXAM: 04/21/2023 COMPARISON: CT 04/21/2023 CLINICAL INDICATION: Male, 57 years old with history of ruq pain; abdominal discomfort x 10 days TECHNIQUE: Multiple sonographic images of the right upper quadrant are obtained. FINDINGS: EXAM MEASUREMENTS: Liver Length: 18.2 cm Gallbladder Wall: 0.3 cm CBD: 0.4 cm Right Kidney: 12.2 x 5.6 x 4.6 cm HOME ENERGY CONSULTANT SUPERVISOR NOTES: Technical limitations due to large amount of overlying bowel content Pancreas: Obscured by bowel gas Liver: limited evaluation, best visualized intercostally Gallbladder: no evidence of stones as visualized Evidence for sonographic Arshad's sign: no CBD: limited evaluation Right Kidney: no evidence of hydronephrosis IMPRESSION: Limited evaluation. No right renal obstructive uropathy. The gallbladder appears within normal limits .
[2023-04-21] MEDS ORDERED: NALOXONE 0.4 MG/ML 1 ML VIAL IV PRN (18:36)
[2023-04-21] MEDS ORDERED: ONDANSETRON 4 MG/2 ML VIAL IVP PRN (18:43)
[2023-04-21] MEDS ORDERED: ACETAMINOPHEN TAB 325 MG TAB PO PRN (18:43)
[2023-04-21] MEDS ORDERED: ASPIRIN 325 MG TAB PO STA (18:43)
[2023-04-21] MEDS: SODIUM CHLORIDE 0.9% 1,000 ML IV SCH (22:52)
[2023-04-22] MEDS ORDERED: MORPHINE SULFATE 4 MG/ML SYRINGE IVP PRN (01:14)
[2023-04-22] MEDS: SODIUM CHLORIDE 0.9% 1,000 ML IV SCH (08:05)
[2023-04-22] MEDS ORDERED: FLUTICASONE 50MCG/SPRAY NASAL 16GM EA NOSTRIL PRN (08:08)
[2023-04-22 08:15] VITALS: BP 127/88; PULSE 79; RESP 16; TEMP 98.3
[2023-04-22] MEDS ORDERED: ASPIRIN 325 MG TAB PO SCH (09:00)
--- NOTE | 2023-04-22 12:21 | P.CRDCN ---
History of Present Illness Consult date: 04/22/23 Consult reason: chest pain History of present illness: The patient is a 57-year-old male who follows in the office with Dr. Barba. He presented to the emergency room with abdominal discomfort which persisted over the course of 7-10 days. He states when the pain first started he did have pain in his chest, however it did resolve. It returned overnight and nursing staff was notified. He describes this pain as a squeezing sensation in his chest. EKG showed no ST or T-wave abnormalities. No arrhythmias were noted on telemetry and vital signs were stable. The patient had a similar episode of chest discomfort in November of this year, where he had undergone stress testing and echocardiogram, which came out to be unremarkable. DIAGNOSTICS: EKG shows sinus mechanism with PVCs and PACs Lab data: WBC 5.4, hemoglobin 14.9, hematocrit 42.7, platelet 194, sodium 136, potassium 4.3, BUN 18, creatinine 0.87, AST 36, ALT 24, troponins negative 3 CT of the abdomen and pelvis shows no acute process Gallbladder ultrasound shows gallbladder within normal limits REVIEW OF SYSTEMS: No fever or chills. No cough or expectoration. No diaphore sis. Patient denies headache, dizziness, blurred vision, double vision. Positive for abdominal discomfort No nausea, vomiting. No hematochezia. No hematemesis. Denies any black stools or blood in his stools. Denies dysuria or hematuria. No muscle weakness or numbness. PHYSICAL EXAMINATION: This is a 57-year-old male in no apparent distress at the time of my examination. HEENT: Head is atraumatic, normocephalic. Pupils are equal, round. There is no jugular venous distention. No carotid bruit is heard. CHEST EXAMINATION: Lungs are clear to auscultation. No chest wall tenderness is noted on palpation or with deep breathing. HEART EXAMINATION: Heart regular rate and rhythm. S1, S2 heard. No murmurs, gallops or rub. ABDOMEN: Soft, nontender. Bowel sounds are heard. No organomegaly noted. EXTREMITIES: 2+ peripheral pulses with no evidence of peripheral edema and no calf tenderness noted. NEUROLOGIC EXAMINATION: Patient is awake, alert and oriented x3. 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 Past Medical History Past Medical History: Hypertension, Thyroid Disorder Additional Past Medical History / Comment(s): Hypothyroidism. Pt reports no medication for HTN. History of Any Multi-Drug Resistant Organisms: None Reported Past Surgical History: No Surgical Hx Reported Additional Past Surgical History / Comment(s): Eye surgery. Past Anesthesia/Blood Transfusion Reactions: No Reported Reaction Past Psychological History: No Psychological Hx Reported Smoking Status: Never smoker Past Alcohol Use History: None Reported Past Drug Use History: None Reported - Past Family History Father Family Medical History: Coronary Artery Disease (CAD) Medications and Allergies Home Medications Medication Instructions Recorded Confirmed Type Levothyroxine Sodium [Synthroid] 75 mcg PO DAILY@1500 08/08/21 04/21/23 History Allergies Allergy/AdvReac Type Severity Reaction Status Date / Time promethazine HCl AdvReac MAKES Verified 04/21/23 16:08 [From Phenergan] PATIENT "JITTERY" Physical Exam Vitals: Vital Signs Temp Pulse Pulse Resp BP BP Pulse Ox 04/22/23 07:00 98.3 F 79 16 127/88 99 04/22/23 02:31 97.7 F 59 L 15 122/78 96 04/22/23 02:00 59 L 15 04/22/23 00:23 76 124/78 100 04/21/23 22:00 15 04/21/23 18:22 98.4 F 79 18 122/92 98 04/21/23 16:57 85 18 137/92 98 04/21/23 15:15 98.1 F 100 20 153/75 95 Intake and Output 04/21/23 04/22/23 04/22/23 22:59 06:59 14:59 Other: Voiding Method Toilet Toilet # Voids 1 1 Weight 105.233 kg Results 04/21/23 15:44 04/21/23 15:44 Cardiac Enzymes 04/21/23 04/21/23 04/21/23 Range/Units 15:44 15:44 20:59 AST 26 (17-59) U/L Troponin I 0.015 <0.012 (0.000-0.034) ng/mL 04/22/23 Range/Units 00:21 AST (17-59) U/L Troponin I <0.012 (0.000-0.034) ng/mL Coagulation 04/21/23 Range/Units 15:44 PT 10.9 (9.0-12.0) sec APTT 25.6 (22.0-30.0) sec CBC 04/21/23 Range/Units 15:44 WBC 5.4 (3.8-10.6) k/uL RBC 4.71 (4.30-5.90) m/uL Hgb 14.9 (13.0-17.5) gm/dL Hct 42.7 (39.0-53.0) % Plt Count 194 (150-450) k/uL Comprehensive Metabolic Panel 04/21/23 Range/Units 15:44 Sodium 136 L (137-145) mmol/L Potassium 4.3 (3.5-5.1) mmol/L Chloride 104 (98-107) mmol/L Carbon Dioxide 22 (22-30) mmol/L BUN 18 (9-20) mg/dL Creatinine 0.87 (0.66-1.25) mg/dL Glucose 108 H (74-99) mg/dL Calcium 9.3 (8.4-10.2) mg/dL AST 26 (17-59) U/L ALT 24 (4-49) U/L Alkaline Phosphatase 56 (38-126) U/L Total Protein 7.2 (6.3-8.2) g/dL Albumin 4.4 (3.5-5.0) g/dL Current Medications Generic Name Dose Route Start Last Admin Trade Name Freq PRN Reason Stop Dose Admin Acetaminophen 650 mg 04/21/23 18:43 Acetaminophen Tab 325 Mg Tab PO Q6HR PRN Mild Pain or Fever > 100.5 Aspirin 325 mg 04/22/23 09:00 04/22/23 08:06 Aspirin 325 Mg Tab PO 325 mg DAILY HEATH Administration Fluticasone Propionate 2 spray 04/22/23 08:08 Fluticasone 50mcg/[place] Nasal 16gm EA NOSTRIL DAILY PRN Allergy Symptoms Sodium Chloride 1,000 mls @ 75 mls/hr 04/21/23 17:45 04/22/23 08:05 Saline 0.9% IV 75 mls/hr .[id number] HEATH Administration Levothyroxine Sodium 75 mcg 04/22/23 15:00 Levothyroxine 75 Mcg Tab PO DAILY@1500 HEATH Morphine Sulfate 4 mg 04/22/23 01:14 04/22/23 01:30 Morphine Sulfate 4 Mg/Ml Syringe IVP 4 mg Q4HR PRN Administration Pain Naloxone HCl 0.2 mg 04/21/23 18:36 Naloxone 0.4 Mg/Ml 1 Ml Vial IV Q2M PRN Opioid Reversal Ondansetron HCl 4 mg 04/21/23 18:43 Ondansetron 4 Mg/2 Ml Vial IVP Q8HR PRN Nausea And Vomiting Pantoprazole Sodium 40 mg 04/22/23 17:30 Pantoprazole 40 Mg Tablet PO AC-BID HEATH Intake and Output 04/21/23 04/22/23 04/22/23 22:59 06:59 14:59 Other: Voiding Method Toilet Toilet # Voids 1 1 Weight 105.233 kg 04/21/23 15:44 04/21/23 15:44
--- NOTE | 2023-04-22 13:16 | P.HPIM ---
History of Present Illness H&P Date: 04/22/23 History of present illness; patient is a 57-year-old gentleman with past medical significant for hypothyroidism who presented to the ER because of abdominal discomfort and chest pressure. Patient stated that the symptoms have been present for the last 11 days. Patient complaining of early satiety and abdominal discomfort. Patient also complaining of chest pressure which is intermittent, nonradiating, no aggravating or relieving factors associated with this chest pressure. Denies any shortness of breath. There is complaining of nausea but no vomiting. Denies any altered bowel movements Initial lab work in the ER showed W BC 5.4, hemoglobin 14.9, crit count 194, sodium 136, potassium 4.3, BUN 18, creatinine 0.87, Initial troponins continued to be negative. CT abdomen and pelvis done showed no evidence for acute abdominal process Ultrasound abdominal and showed no biliary pathology Patient was admitted to medicine service REVIEW OF SYSTEMS: CONSTITUTIONAL: No fever, no malaise, no fatigue. HEENT: No recent visual problems or hearing problems. Denied any sore throat. CARDIOVASCULAR: As mentioned in HPI PULMONARY: As mentioned in HPI GASTROINTESTINAL: As mentioned in HPI NEUROLOGICAL: No headaches, no weakness, no numbness. HEMATOLOGICAL: Denies any bleeding or petechiae. GENITOURINARY: Denies any burning micturition, frequency, or urgency. MUSCULOSKELETAL/RHEUMATOLOGICAL: Denies any joint pain, swelling, or any muscle pain. ENDOCRINE: Denies any polyuria or polydipsia. The rest of the 14-point review of systems is negative. PHYSICAL EXAMINATION: GENERAL: The patient is alert and oriented x3, not in any acute distress. Well developed, well nourished. HEENT: Pupils are round and equally reacting to light. EOMI. No scleral icterus. No conjunctival pallor. Normocephalic, atraumatic. No pharyngeal erythema. No thyromegaly. CARDIOVASCULAR: S1 and S2 present. No murmurs, rubs, or gallops. PULMONARY: Chest is clear to auscultation, no wheezing or crackles. ABDOMEN: Soft, nontender, nondistended, normoactive bowel sounds. No palpable organomegaly. MUSCULOSKELETAL: No joint swelling or deformity. EXTREMITIES: No cyanosis, clubbing, or pedal edema. NEUROLOGICAL: Gross neurological examination did not reveal any focal deficits. SKIN: No rashes. Assessment and plan Chest pain Abdominal pain Hypothyroidism Monitor vital signs Monitor CBC Monitor CMP Trend troponins Ordered d-dimer stat Start Protonix Aggressive bowel regimen Continue Synthroid Consult cardiology DVT prophylaxis: Past Medical History Past Medical History: Hypertension, Thyroid Disorder Additional Past Medical History / Comment(s): Hypothyroidism. Pt reports no medication for HTN. History of Any Multi-Drug Resistant Organisms: None Reported Past Surgical History: No Surgical Hx Reported Additional Past Surgical History / Comment(s): Eye surgery. Past Anesthesia/Blood Transfusion Reactions: No Reported Reaction Past Psychological History: No Psychological Hx Reported Smoking Status: Never smoker Past Alcohol Use History: None Reported Past Drug Use History: None Reported - Past Family History Father Family Medical History: Coronary Artery Disease (CAD) Medications and Allergies Home Medications Medication Instructions Recorded Confirmed Type Levothyroxine Sodium [Synthroid] 75 mcg PO DAILY@1500 08/08/21 04/21/23 History Allergies Allergy/AdvReac Type Severity Reaction Status Date / Time promethazine HCl AdvReac MAKES Verified 04/21/23 16:08 [From Phenergan] PATIENT "JITTERY" Physical Exam Vitals: Vital Signs Temp Pulse Pulse Resp BP BP Pulse Ox 04/22/23 07:00 98.3 F 79 16 127/88 99 04/22/23 02:31 97.7 F 59 L 15 122/78 96 04/22/23 02:00 59 L 15 04/22/23 00:23 76 124/78 100 04/21/23 22:00 15 04/21/23 18:22 98.4 F 79 18 122/92 98 04/21/23 16:57 85 18 137/92 98 04/21/23 15:15 98.1 F 100 20 153/75 95 Intake and Output 04/21/23 04/22/23 04/22/23 22:59 06:59 14:59 Other: Voiding Method Toilet Toilet # Voids 1 1 Weight 105.233 kg Results CBC & Chem 7: 04/21/23 15:44 04/21/23 15:44 Labs: Abnormal Lab Results - Last 24 Hours (Table) 04/21/23 04/21/23 Range/Units 15:44 15:44 Lymphocytes # 0.8 L (1.0-4.8) k/uL Sodium 136 L (137-145) mmol/L Glucose 108 H (74-99) mg/dL Thrombosis Risk Factor Assmnt - Choose All That Apply Each Factor Represents 1 point: Age 41-60 years, Obesity (BMI >25) Thrombosis Risk Factor Assessment Total Risk Factor Score: 2 Thrombosis Risk Factor Assessment Level: Low Risk
--- NOTE | 2023-04-22 13:21 | P.DS ---
Providers Date of admission: 04/21/23 18:36 Expected date of discharge: 04/22/23 Attending physician: Espinoza Bernstein Consults: 04/21/23 18:36 Consult Physician Routine Consulting Provider: Daniel Bahena Consult Reason/Comments: CP rule out Do you want consulting provider notified?: Yes Primary care physician: Bucky Guardado Hospital Course: Discharge diagnoses; Chest pain Abdominal pain Hypothyroidism Hospital course; patient is a 57-year-old gentleman with past medical significant for hypothyroidism who presented to the ER because of abdominal discomfort and chest pressure. Patient stated that the symptoms have been present for the last 11 days. Patient complaining of early satiety and abdominal discomfort. Patient also complaining of chest pressure which is intermittent, nonradiating, no aggravating or relieving factors associated with this chest pressure. Denies any shortness of breath. There is complaining of nausea but no vomiting. Denies any altered bowel movements Initial lab work in the ER showed W BC 5.4, hemoglobin 14.9, crit count 194, sodium 136, potassium 4.3, BUN 18, creatinine 0.87, Initial troponins continued to be negative. CT abdomen and pelvis done showed no evidence for acute abdominal process Ultrasound abdominal and showed no biliary pathology Patient was admitted to medicine service Patient was seen by cardiology, patient troponin continue to be negative. D- dimer was also negative. Cardiology cleared the patient for discharge. Patient was started on Protonix for abdominal discomfort, recommend outpatient follow-up with GI PHYSICAL EXAMINATION: GENERAL: The patient is alert and oriented x3, not in any acute distress. Well developed, well nourished. HEENT: Pupils are round and equally reacting to light. EOMI. No scleral icterus. No conjunctival pallor. Normocephalic, atraumatic. No pharyngeal erythema. No thyromegaly. CARDIOVASCULAR: S1 and S2 present. No murmurs, rubs, or gallops. PULMONARY: Chest is clear to auscultation, no wheezing or crackles. ABDOMEN: Soft, nontender, nondistended, normoactive bowel sounds. No palpable organomegaly. MUSCULOSKELETAL: No joint swelling or deformity. EXTREMITIES: No cyanosis, clubbing, or pedal edema. NEUROLOGICAL: Gross neurological examination did not reveal any focal deficits. SKIN: No rashes. Patient Condition at Discharge: Good Plan - Discharge Summary New Discharge Prescriptions: No Action Levothyroxine Sodium [Synthroid] 75 mcg PO DAILY@1500 Discharge Medication List Levothyroxine Sodium [Synthroid] 75 mcg PO DAILY@1500 08/08/21 [History] Follow up Appointment(s)/Referral(s): Bucky Guardado DO [Primary Care Provider] - 1-2 days
[2023-04-22] MEDS ORDERED: LEVOTHYROXINE 75 MCG TAB PO SCH (15:00)
[2023-04-22] MEDS ORDERED: PANTOPRAZOLE 40 MG TABLET PO SCH (17:30)
== END 2023-04-22 14:40 | disposition home or self-care (01) ==
LOC: EC 15:03 → 6NMEDSUR 18:36
PROVIDERS: ADMIT Hospitalist; ATTEND Hospitalist
DX: R07.89 Other chest pain (principal); R10.84 Generalized abdominal pain; R11.0 Nausea; E03.9 Hypothyroidism, unspecified; I49.1 Atrial premature depolarization; I49.3 Ventricular premature depolarization; N40.0 Benign prostatic hyperplasia without lower urinary tract symptoms; K57.30 Diverticulosis of large intestine without perforation or abscess without bleeding; I10 Essential (primary) hypertension; R68.81 Early satiety; E66.9 Obesity, unspecified; Z68.28 Body mass index [BMI] 28.0-28.9, adult; Z79.890 Hormone replacement therapy; Z88.8 Allergy status to other drugs, medicaments and biological substances; Z98.890 Other specified postprocedural states; Z82.49 Family history of ischemic heart disease and other diseases of the circulatory system
CPT/HCPCS: 96374; 96361; 99285; 36415; 93005; 85379; 80053; 82150; 83605; 83690; 84484 ×2; 85025; 85610; 85730; 81003; 76705; 74177; G0378 ×2; J2270; Q9967

== ENCOUNTER → 2024-02-08 | Outpatient (CLI) | payer BC ==
[2024-02-08 15:34] LABS: HCT 44.6 % (39.6-50.0); HGB 15.4 g/dL (13.0-17.0); MCH 31.4 pg (27.0-32.0); MCHC 34.5 g/dL (32.0-37.0); MCV 90.8 FL (80.0-97.0); Mean Platelet Volume 11.1 FL (9.5-12.2); NRBC Per 100 WBC 0 X 10*3/uL (0.00-0.01); Platelet Count 190 X 10*3/uL (140-440); RBC 4.91 X 10*6/uL (4.40-5.60); RDW 12.3 % (11.5-14.5); WBC 3.64 X 10*3/uL (4.50-10.00)
[2024-02-08 15:56] LABS: ALT 23 U/L (10-49); AST 23 U/L (14-35); Albumin 4.7 g/dL (3.8-4.9); Albumin/Globulin Ratio 2.04 Ratio (1.60-3.17); Alkaline Phosphatase 64 U/L (41-126); Blood Urea Nitrogen 29.8 mg/dL (9.0-27.0); Calcium 10.1 mg/dL (8.7-10.3); Carbon Dioxide 25.1 mmol/L (21.6-31.8); Chloride 104 mmol/L (96-109); Chol/HDL Ratio 2.81 Ratio; Globulin 2.3 g/dL (1.6-3.3); Glucose 102 mg/dL (70-110); Potassium 4.6 mmol/L (3.5-5.5); Sodium 139 mmol/L (135-145); Total Bilirubin 0.5 mg/dL (0.3-1.2); VLDL Calculation 9.48 mg/dL (5.00-40.00)
== END | disposition home or self-care (01) ==
LOC: LABWHC1 10:14
PROVIDERS: ATTEND Internal Medicine
DX: E78.5 Hyperlipidemia, unspecified (principal)
CPT/HCPCS: 36415; 80053; 80061; 85027